=== PATIENT | male | born 1950 | race Asian ===

== ENCOUNTER 2024-07-01 14:54 | Inpatient (IN) | payer MEDICARE, MEDICAID, SELFPAY ==
[2024-07-01] VITALS (15 sets, daily range): BP systolic 132–180; BP diastolic 60–106; PULSE 65–81; RESP 17–100; TEMP 36.4–36.7; O2SAT 99–100; BMI 18.8; BMI 18.7
--- NOTE | 2024-07-01 15:31 | PD.EDRME ---
Rapid Medical Screening Exam RME Arrival date/time: 07/01/24 14:54 This is a 73-year-old male that was sent by his primary provider with complaints of low sodium. Patient thinks his sodium was 117 but she is not sure. Patient has no complaints although states that he has not been helping her clean outside and she thinks it is because he is not feeling well and he feels weak. Patient does not have any complaints. Patient has a history of diabetes, hyperlipidemia, and hypertension. I have greeted and performed a focused initial assessment of this patient. Initial appropriate labs ordered at this time. A comprehensive ED assessment and evaluation of the patient and analysis of all test and completion of medical decision making process will be conducted by additional ED provider. Chief Complaint: Recheck/Abnormal Lab/Rx Time Seen by Provider: 07/01/24 15:00 Vital signs: Vital Signs Temperature 97.6 F 07/01/24 15:23 Pulse Rate 77 07/01/24 15:23 Respiratory Rate 18 07/01/24 15:23 Blood Pressure 163/66 H 07/01/24 15:23 Pulse Oximetry (%) 99 07/01/24 15:23 Oxygen Delivery Method Room Air 07/01/24 15:23
--- NOTE | 2024-07-01 15:32 | EKG_ITS ---
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
--- NOTE | 2024-07-01 15:32 | XR_ITS ---
Examination: PA lateral chest 2 views TECHNIQUE: Upright PA and lateral chest 2 views Exam date and time: July 01, 2024 at 1546 hours Comparison May 19, 2024 INDICATIONS: Chest pain today. FINDINGS: Normal heart size. No pneumonia or pulmonary edema. Moderate osteopenia IMPRESSION: No active disease.
[2024-07-01 16:13] LABS: Collection Type, Urine Voided; Squamous Epithelial Cell,Urine 0 /hpf (0-5)
[2024-07-01 16:24] LABS: Basophils % (Auto) 0 % (0-2.5); Eosinophils # (Auto) 0.2 Thou/mm3 (0.0-0.5); Eosinophils % (Auto) 4 % (0-10); Hematocrit 31.4 % (41.0-53.0); Hemoglobin 11.7 g/dL (13.5-16.0); Immature Granulocytes % (Auto) 0 % (0-0); Immature Granulocytes Auto 0.02 Thou/mm3 (0.00-0.00); Lymphocytes # (Auto) 0.8 Thou/mm3 (1.0-4.8); Lymphocytes % (Auto) 16 % (10-50); Mean Corpuscular HGB Conc 37.3 g/dl (31.0-37.0); Mean Corpuscular Hemoglobin 29.8 pg (25.0-35.0); Mean Corpuscular Volume 80 fL (80-100); Monocytes # (Auto) 0.8 Thou/mm3 (0.0-0.8); Monocytes % (Auto) 16 % (0-12); Neutrophils # (Auto) 3.2 Thou/mm3 (1.8-7.7); Neutrophils % (Auto) 64 % (37-80); Nucleated Red Blood Cell % 0 /100 WBC (0); Platelet Count 299 Thou/mm3 (140-440); RDW Standard Deviation 35.6 fL (35.1-43.9); Red Blood Count 3.92 Miln/mm3 (4.50-5.90)
[2024-07-01 16:34] LABS: B-Type Natriuretic Peptide 59 pg/mL (0-100)
--- NOTE | 2024-07-01 16:35 | EDNOTE_ITS ---
<Statement entered by Hannah So MD - 07/02/24 04:25> As co-signing physician, I was present and available for consult prn. I concur with the plan and care as documented by the midlevel provider. ED Recheck Abnl Lab Rx-RME/HPI General Chief Complaint: Recheck/Abnormal Lab/Rx Stated Complaint: LOW SODIUM, SENT BY CLINIC Time Seen by Provider: 07/01/24 15:00 Arrival date/time: 07/01/24 14:54 RME / HPI RME / HPI narrative: 73-year-old male that was sent by his primary provider with complaints of low sodium. Patient thinks his sodium was 117 but she is not sure. Patient has no complaints although states that he has not been helping her clean outside and she thinks it is because he is not feeling well and he feels weak. Patient does not have any complaints except for dizziness when the patient woke up this morning. Patient has a history of diabetes, hyperlipidemia, and hypertension. Patient lab draw was done yesterday. No vomiting no diarrhea no other complaints noted. Related Data Home Medications ?Medication ?Instructions ?Recorded ?Confirmed atorvastatin 20 mg tablet 20 mg PO QDAY 01/29/2201/29 glipizide 5 mg-metformin 500 mg 5 - 500 tab PO BID 03/2201/29/22 tablet lisinopril 30 mg tablet 30 mg PO QDAY 01/29/2201/29 Allergies Allergy/AdvReac Type Severity Reaction Status Date / Time No Known Allergies Allergy Unknown Uncoded 05/20/04 16:51 Review of Systems Review of Systems Narrative Review of Systems: Review of system reviewed and within normal limits except mentioned in HPI ED Exam Narrative Physical exam: VITAL SIGNS: Reviewed. GENERAL APPEARANCE: Alert and interactive, follows commands, no acute distress, HEAD AND FACE: Non-traumatic. ENT: PERRL, pink conjunctivitis, eyelid no trauma, Mucous membrane moist. NECK: Supple, nontender, no nuchal rigidity. CHEST: No tenderness, no crepitus, no paradoxical movement, no retractions. LUNGS: Clear, well ventilated, symmetric, no rales, no wheezing, no ronchi, no stridor, good breath sounds bilaterally. HEART: Regular rate, regular rhythm, no murmur, no gallops. ABDOMEN: Soft, positive bowel sounds, nondistended, no guarding, nontender, no rebound, no masses, RECTAL: Deferred. GENITAL: Deferred. NEUROLOGICAL: Gross motor function intact sensory function intact, Appropriate for age. MUSCULOSKELETAL: low back nontender, full range of motion. EXTREMITIES: Nontender, full range of motion. SKIN: Color pink, dry, no rash, no lacerations, no abrasions, no contusions. LYMPHATICS: Deferred. Course Quality Measures none Orders Category Date Time Status COVID-19 Screening Questionnaire NOW Care 07/01/24 19:31 Active Decision to Admit X1 Care 07/01/24 19:31 Completed EKG (ED ONLY) *Do not use* NOW Care 07/01/24 15:32 Completed Insert IV NOW Care 07/01/24 19:01 Active EKG (ED Only) Stat Exams 07/01/24 15:32 Draft XR chest 2V Stat Exams 07/01/24 15:32 Completed BNP [B-Type Natriuretic Peptide] Stat Lab 07/01/24 15:59 Completed CBC Stat Lab 07/01/24 15:59 Completed Comprehensive Metabolic Panel Stat Lab 07/01/24 15:59 Completed Magnesium Stat Lab 07/01/24 15:59 Completed Phosphorous Stat Lab 07/01/24 15:59 Completed Troponin I Stat Lab 07/01/24 15:59 Completed Urinalysis, C/S if Indicated Stat Lab 07/01/24 16:07 Completed Sodium Chloride 0.9% 250 ml [Ns] 250 ml Med 07/01/24 18:36 Discontinued IV 999 mls/hr Vital Signs Vital signs: Vital Signs Temperature 97.6 F 07/01/24 15:23 Pulse Rate 77 07/01/24 15:23 Respiratory Rate 18 07/01/24 15:23 Blood Pressure 163/66 H 07/01/24 15:23 Pulse Oximetry (%) 99 07/01/24 15:23 Oxygen Delivery Method Room Air 07/01/24 15:23 Recheck / Abnormal Lab / Rx MDM Narrative MDM Narrative:: 73-year-old male that was sent by his primary provider with complaints of low sodium. Patient thinks his sodium was 117 but she is not sure. Patient has no complaints although states that he has not been helping her clean outside and she thinks it is because he is not feeling well and he feels weak. Patient does not have any complaints except for dizziness when the patient woke up this morning. Patient has a history of diabetes, hyperlipidemia, and hypertension. Patient lab draw was done yesterday. No vomiting no diarrhea no other complaints noted. Patient's sodium was noted to be 120 hemoglobin of 11.7 months [address] DrNelida 0.4 chloride was also noted to be 84 creatinine 1.6 BUN of 27. Osmolality was noted to be 252 Patient troponin was noted to be 0.0 52 Urinalysis no UTI EKG showed normal sinus rhythm, ventricular rate of 68 bpm, no ST segment elevation or depression noted. CT scan of the head came back unremarkable. Patient received IV NS x 1 L. Patient data External records reviewed:: None Clinical information provided by:: patient Social determinants that could affect healthcare access:: none Patient has the following chronic illnesses:: Hypertension How is presenting disease/condition affected by chronic disease/condition?: exacerbated by Evaluation data The following diagnostics were reviewed and interpreted by me:: lab results, radiology exam(s) and EKG tracing(s) Lab and/or radiology exams considered but not ordered:: None Interpretation Summary: See results MDM Medications / Prescriptions Medications or Prescriptions considered but not ordered:: None Medication administrations:: Medication Administration History Acetaminophen (Acetaminophen 325 Mg Tablet) 650 mg PO Q6H PRN PRN Reason: PAIN OR FEVER > 101 Stop: 07/31/24 20:37 Dextrose (Dextrose 50%-Water Inj 50 Ml Syringe) 25 ml IV Q15MIN PRN PRN Reason: BG 50-70 responsive npo pt Stop: 07/31/24 20:49 Dextrose (Dextrose 50%-Water Inj 50 Ml Syringe) 50 ml IV Q15MIN PRN PRN Reason: BG <50 OR BG <70 & pt unresponsive Stop: 07/31/24 20:49 Glucagon (Glucagon Inj 1 Mg Vial) 1 mg IM Q15MIN PRN PRN Reason: BG <70, and no IV access Sodium Chloride (Ns) 1,000 mls @ 75 mls/hr IV .[id number] DEREJE Stop: 07/31/24 20:50 Last Admin: 07/01/24 21:43 Dose: 75 mls/hr Documented By: Infusion: 07/01/24 21:43 Dose: Infused Documented By: Admin: 07/01/24 21:06 Dose: 75 mls/hr Documented By: EE Insulin Human Lispro (Insulin Lispro (Admelog) 1 Unit/0.01 Ml Unit) 0 unit SC AC DEREJE; Protocol Stop: 08/01/24 07:29 Lisinopril (Lisinopril 20 Mg Tablet) 40 mg PO QDAY DEREJE Stop: 08/01/24 08:59 Ondansetron HCl (Ondansetron Inj 2 Mg/Ml Inj 2 Ml) 4 mg IV Q6H PRN; Protocol PRN Reason: NAUSEA OR VOMITING Stop: 07/31/24 20:37 Sennosides (Senna Tablet) 2 tab PO BID PRN; Protocol PRN Reason: CONSTIPATION Stop: 07/31/24 20:37 Discontinued Medications Sodium Chloride (Ns) 250 mls @ 999 mls/hr IV .Q16M ONE Stop: 07/01/24 18:51 Last Infusion: 07/01/24 19:15 Dose: Infused Documented By: Admin: 07/01/24 19:03 Dose: 999 mls/hr Documented By: ANAHI IV fluids for hydration Consultations Consultation(s) initiated? (list below): No Diagnosis Recheck Differential Diagnosis: other (Dizziness, generalized weakness hyponatremia, dehydration) Most likely diagnosis given after review of the tests above:: Hyponatremia, dizziness, generalized weakness Admission Indicated Admission indicated?: indicated Admission Request Was there a request for admission?: Yes Admission Attestation Admission request attestation: Discussed case with [Dr. Ortiz] from Hospitalist service regarding admission. Discussed patients ED course, exam findings, labs, and radiology results. The Hospitalist [agrees] to accept the patient for admission. Disposition Plan Disposition Plan: Admit Discharge Plan Plan Patient Disposition: Admit Acute Care w/in Hospital Discharge Disposition comment: Stable Problem List Clinical Impression: Acute hyponatremia, Dizziness, Weakness generalized
[2024-07-01 16:47] LABS: Bilirubin,Urine Negative (Negative); Blood,Urine Negative (Negative); Clarity,Urine Clear (Clear/Hazy); Color,Urine Lt-Yellow (Lt Yel-Yel); Culture Indicated,Urine Not Indicated; Glucose, Urine Trace (Negative); Ketones,Urine Negative (Negative); Leukocyte Esterase,Urine Negative (Negative); Nitrite,Urine Negative (Negative); PH,Urine 6.5 (5.0-7.0); Protein,Urine Trace (Neg - Trace); RBC,Urine 1 /hpf (0-3); Specific Gravity,Urine 1.009 (1.001-1.035); Urobilinogen,Urine Negative mg/dL (0.0-1.0); WBC,Urine < 1 /hpf (0-5)
[2024-07-01 17:03] LABS: Alanine Aminotransferase 29 U/L (10-49); Albumin, Serum 4.9 gm/dL (3.4-4.8); Albumin/Globulin Ratio 1.9 (1.2-2.2); Alkaline Phosphatase 86 U/L (46-116); Anion Gap 12 (7-16); Aspartate Amino Transferase 18 U/L (0-34); BUN/Creatinine Ratio 17 Ratio (12-20); Bilirubin,Total 0.6 mg/dL (0.3-1.2); Blood Urea Nitrogen 27 mg/dL (9-23); Calcium 9.1 mg/dL (8.3-10.6); Calcium (Corrected) 9.1 mg/dL (8.5-10.1); Carbon Dioxide 24.3 mMol/L (20.0-31.0); Chloride 84 mMol/L (98-107); Creatinine (Component) 1.6 mg/dL (0.6-1.3); Estimated Creatinine Clearance 29.9 mL/min (>60); Globulin 2.6 gm/dL (2.3-3.5); Glucose 194 mg/dL (74-106); Magnesium 1.7 mg/dL (1.6-2.6); Osmolality,Calculated 252 (275-295); Phosphorous 3.5 mg/dL (2.4-5.1); Potassium 3.9 mMol/L (3.4-5.1); Sodium 120 mMol/L (136-145); Total Protein 7.5 gm/dL (5.7-8.2); eGFR 46 See Note
[2024-07-01 17:05] LABS: Troponin I 0.048 ng/mL (0.0-0.045)
[2024-07-01] MEDS: SODIUM CHLORIDE 0.9% 250 ML 250 ML 999 ML IV (19:03)
--- NOTE | 2024-07-01 20:38 | XR_ITS ---
Examination: CT brain head without contrast. 2-D sagittal coronal reconstructions Date and time of exam:July 01, 2024 2125 hours INDICATIONS: Generalized weakness beginning 2 days ago CTDI: vol (mGy):50 DLP: (mGycm): 993 Technique: Multiple CT axial sections of the brain have been obtained, 5 mm slice thickness. Contrast has not been administered. 2-D sagittal, coronal reconstructions have been obtained Low dose protocols were performed. One or more of the following dose reduction techniques were used; automated exposure control, adjustment of the mA and/or KV according to patient size, use of iterative reconstruction technique. Findings: No significant ventricular enlargement. Mild chronic frontal subdural hygromas Intra-axial or extra-axial hemorrhage density is not seen. No mass effect or midline shift Basal cisterns are not remarkable. Fourth ventricle is midline. Cranial vault intact. Moderate bilateral chronic mastoiditis Impression: Negative for acute hemorrhage, mass effect or midline shift
--- NOTE | 2024-07-01 20:52 | ESHP_ITS ---
Documentation for date of: 07/01/24 HPI History of Present Illness History of present illness: Patient is 81-year-old male, past medical history of diabetes mellitus, hypertension, ischemic CVA, who was referred to the ER by his primary care physician after routine labs showed low sodium. Per patient he is currently asymptomatic, except for some tingling sensation in his left lower extremity and left shoulder. Mental status is at the baseline. The patient he was seen at [facility] by his PCP, routine labs showed sodium 117, patient was directed to go to the emergency room for admission. Patient reported that he has been trying to lose weight and is on a diet, diet mostly consists of toast, also admitted to drinking excessive amounts of water. Also reported infrequent loose bowel movements, twice last week. 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 Past medical history: Diabetes mellitus on oral hypoglycemics, hypertension on lisinopril, hyperlipidemia on atorvastatin, remote history of ischemic CVA in 2002, was on aspirin but is not currently taking aspirin. CKD, he was referred to [employer] worker apprentice by his PCP, but has not been compliant with follow-up. Past surgical history: History of cholecystectomy, history of appendectomy, cataract surgery Social history: Denies smoking or drinking, denies drug use Review of Systems Review of Systems Narrative Review of Systems: General: Denies fevers or chills HEENT: Denies congestion or sore throat Heart: Denies chest pain or palpitations Lungs: Denies shortness of breath or cough Abdomen: Endorses diarrhea, denies melena or bleeding from GI tract. Genitourinary: Denies frequency, urgency, dysuria, or hematuria Musculoskeletal: Denies joint pain, denies muscular pain Neurology: Denies any numbness, tingling Review of systems otherwise negative except what is mentioned above. Exam Vital Signs Temp Pulse Resp BP Pulse Ox O2 Del Method 97.6 F 68 17 147/64 H 100 Room Air 07/01/24 18:53 07/01/24 18:53 07/01/24 18:53 07/01/24 18:53 07/01/24 18:53 07/01/24 18:53 Narrative Exam General: AOx3, cooperative, noted temporal wasting Skin: Intact, no cyanosis or edema noted. HEENT: Atraumatic/normocephalic, ADIS, neck supple Heart: RRR, S1 and S2 without clicks or murmurs Lungs: Clear on auscultation bilaterally, no difficulty breathing Abdomen: Soft, nontender. Bowel sounds present . Vascular: Peripheral pulses palpable Neuro: No focal neurological deficits noted. Results: Labs 07/01/24 15:59 07/01/24 20:55 Labs: Short CBC 07/01/24 Range/Units 15:59 WBC 5.0 (3.8-10.6) Thou/mm3 Hgb 11.7 L (13.5-16.0) g/dL Hct 31.4 L (41.0-53.0) % Plt Count 299 (140-440) Thou/mm3 BMP 07/01/24 15:59 Sodium 120 L Potassium 3.9 Chloride 84 L Carbon Dioxide 24.3 BUN 27 H Creatinine 1.6 H Glucose 194 H Calcium 9.1 Cardiac Enzymes 07/01/24 Range/Units 15:59 Troponin I 0.048 H* (0.0-0.045) ng/mL Liver Function 07/01/24 Range/Units 15:59 Total Bilirubin 0.6 (0.3-1.2) mg/dL AST 18 (0-34) U/L ALT 29 (10-49) U/L Alkaline Phosphatase 86 (46-116) U/L Albumin 4.9 H (3.4-4.8) gm/dL Urine 07/01/24 Range/Units 16:07 Urine Color Lt-Yellow (Lt Yel-Yel) Urine Clarity Clear (Clear/Hazy) Urine pH 6.5 (5.0-7.0) Ur Specific [place] 1.009 (1.001-1.035) Urine Protein Trace (Neg - Trace) Urine Glucose (UA) Trace (Negative) Quality Measures Quality Measures VTE prophylaxis Advance care planning discussed with:: patient Medications Home Medications and Allergies Home Medications ?Medication ?Instructions ?Recorded ?Confirmed ?Type atorvastatin 20 mg tablet 20 mg PO QDAY 01/29/2201/29 History glipizide 5 mg-metformin 500 mg 5 - 500 tab PO BID 03/2201/29/22 History tablet lisinopril 30 mg tablet 30 mg PO QDAY 01/29/2201/29 History Allergies Allergy/AdvReac Type Severity Reaction Status Date / Time No Known Allergies Allergy Unknown Uncoded 05/20/04 16:51 Visit Medications Acetaminophen (Acetaminophen 325 Mg Tablet) 650 mg PO Q6H PRN PRN Reason: PAIN OR FEVER > 101 Stop: 07/31/24 20:37 Dextrose (Dextrose 50%-Water Inj 50 Ml Syringe) 25 ml IV Q15MIN PRN PRN Reason: BG 50-70 responsive npo pt Stop: 07/31/24 20:49 Dextrose (Dextrose 50%-Water Inj 50 Ml Syringe) 50 ml IV Q15MIN PRN PRN Reason: BG <50 OR BG <70 & pt unresponsive Stop: 07/31/24 20:49 Glucagon (Glucagon Inj 1 Mg Vial) 1 mg IM Q15MIN PRN PRN Reason: BG <70, and no IV access Sodium Chloride (Ns) 1,000 mls @ 75 mls/hr IV .[id number] DEREJE Stop: 07/31/24 20:50 Insulin Human Lispro (Insulin Lispro (Admelog) 1 Unit/0.01 Ml Unit) 0 unit SC AC DEREJE; Protocol Stop: 08/01/24 07:29 Lisinopril (Lisinopril 20 Mg Tablet) 40 mg PO QDAY DEREJE Stop: 08/01/24 08:59 Ondansetron HCl (Ondansetron Inj 2 Mg/Ml Inj 2 Ml) 4 mg IV Q6H PRN; Protocol PRN Reason: NAUSEA OR VOMITING Stop: 07/31/24 20:37 Sennosides (Senna Tablet) 2 tab PO BID PRN; Protocol PRN Reason: CONSTIPATION Stop: 07/31/24 20:37 Discontinued Medications Sodium Chloride (Ns) 250 mls @ 999 mls/hr IV .Q16M ONE Stop: 07/01/24 18:51 Last Admin: 07/01/24 19:03 Dose: 999 mls/hr Assessment & Plan Plan Patient is a 73-year-old male, past medical history of hypertension, diabetes, hyperlipidemia, who was referred to the ER by his PCP after routine labs showed hyponatremia. #Hypoosmolar hyponatremia Per patient, on outpatient labs sodium was 117, repeat sodium 120, chest x-ray negative for pulmonary mass, ordered CT head without contrast due to AINYA. ? Every 4 hours sodium checks ? IV 0.9% NS at 75 cc/h ? Urine electrolytes #ANIYA on CKD Unknown baseline kidney function, but patient does have history of CKD, lost to follow-up with [employer]ra[employer] worker apprent[employer]. ? Gentle IV maintenance fluids ? Avoid nephrotoxic drugs ? Consider nephrology consult #Type II AL Likely supply/demand ischemia, patient is asymptomatic does not complain of any chest pain or pressure. No complaint of shortness of breath. Initial troponin elevated on ER labs, will order repeat troponin, EKG negative for any acute ischemia. #History of hypertension - continue lisinopril #History of diabetes mellitus ? sliding scale insulin ? Follow A1c Disposition: TELE DVT prophylaxis: Heparin subcut GI prophylaxis: none Diet: Renal , fluid restriction Lines: PIV CODE STATUS: Full Plan of care discussed with attending Dr. Ryan Caicedo pgy 2 Attending Provider Attestation/Addendum I have examined the patient, reviewed labs and imaging findings, discussed the case with the resident(s), and reviewed entered orders. I agree with the plan of care as outlined in this note, with these additional summaries/recommendations: 73-year-old male presented to the ED sent over by primary care physician for low sodium. In the ER, patient found to have sodium level of 117 but otherwise appears relatively asymptomatic. Repeat testing showed 120. Discussion held with patient and recommended to stay for further workup and correction of serum sodium level. Will monitor closely for signs neurological dysfunction and aim for slow correction of serum sodium. Sundeep Davis MD
[2024-07-01] MEDS: SODIUM CHLORIDE 0.9% 1000 ML 1,000 ML 75 ML IV ×2 (21:06→21:43)
[2024-07-01 22:08] LABS: Sodium 122 mMol/L (136-145)
[2024-07-01 22:09] LABS: Troponin I 0.052 ng/mL (0.0-0.045)
[2024-07-02] VITALS (20 sets, daily range): BP systolic 100–189; BP diastolic 54–79; PULSE 58–87; RESP 12–100; TEMP 36.8–36.9; O2SAT 98–100
[2024-07-02] MEDS: SODIUM CHLORIDE 0.9% 1000 ML 1,000 ML 50 ML IV (00:45)
[2024-07-02 06:31] LABS: Basophils % (Auto) 0 % (0-2.5); Eosinophils # (Auto) 0.3 Thou/mm3 (0.0-0.5); Eosinophils % (Auto) 6 % (0-10); Hematocrit 28.4 % (41.0-53.0); Hemoglobin 10.4 g/dL (13.5-16.0); Immature Granulocytes % (Auto) 0 % (0-0); Immature Granulocytes Auto 0.01 Thou/mm3 (0.00-0.00); Lymphocytes # (Auto) 1.1 Thou/mm3 (1.0-4.8); Lymphocytes % (Auto) 21 % (10-50); Mean Corpuscular HGB Conc 36.6 g/dl (31.0-37.0); Mean Corpuscular Volume 82 fL (80-100); Monocytes # (Auto) 0.7 Thou/mm3 (0.0-0.8); Monocytes % (Auto) 14 % (0-12); Neutrophils # (Auto) 3.1 Thou/mm3 (1.8-7.7); Neutrophils % (Auto) 60 % (37-80); Nucleated Red Blood Cell % 0 /100 WBC (0); Platelet Count 278 Thou/mm3 (140-440); RDW Standard Deviation 36.6 fL (35.1-43.9); Red Blood Count 3.47 Miln/mm3 (4.50-5.90); White Blood Count 5.2 Thou/mm3 (3.8-10.6)
[2024-07-02 06:54] LABS: Alanine Aminotransferase 24 U/L (10-49); Albumin/Globulin Ratio 1.9 (1.2-2.2); Alkaline Phosphatase 69 U/L (46-116); Anion Gap 8 (7-16); Aspartate Amino Transferase 15 U/L (0-34); BUN/Creatinine Ratio 19 Ratio (12-20); Bilirubin,Total 0.6 mg/dL (0.3-1.2); Blood Urea Nitrogen 23 mg/dL (9-23); Calcium 8.7 mg/dL (8.3-10.6); Calcium (Corrected) 8.7 mg/dL (8.5-10.1); Carbon Dioxide 23.7 mMol/L (20.0-31.0); Cardiac Risk Estimate 1.7 RATIO (4.0-6.7); Chloride 95 mMol/L (98-107); Cholesterol 76 mg/dL (132-200); Creatinine (Component) 1.2 mg/dL (0.6-1.3); Estimated Creatinine Clearance 39.6 mL/min (>60); Globulin 2.1 gm/dL (2.3-3.5); Glucose 117 mg/dL (74-106); HDL Cholesterol 46 mg/dL (40-60); LDL Cholesterol,Calculated 17 mg/dL (0-130); Magnesium 1.6 mg/dL (1.6-2.6); Osmolality,Calculated 259 (275-295); Phosphorous 3.1 mg/dL (2.4-5.1); Potassium 3.6 mMol/L (3.4-5.1); Sodium 127 mMol/L (136-145); Thyroid Stimulating Hormone 1.13 uIU/mL (0.55-4.78); Total Protein 6.1 gm/dL (5.7-8.2); Triglycerides 63 mg/dL (30-150); eGFR > 60 See Note
[2024-07-02 07:34] LABS: Glucose Estimated Average 186 mg/dL (80-131); Hemoglobin A1C 8.1 % Hgb (4.8-6.0)
[2024-07-02 07:45] LABS: Troponin I 0.048 ng/mL (0.0-0.045)
[2024-07-02] MEDS: Lisinopril 20 MG TABLET 40 MG PO (08:36)
[2024-07-02] MEDS: DEXTROSE 5%-WATER 1,000 ML 75 ML IV (08:36)
[2024-07-02 10:36] LABS: Sodium 127 mMol/L (136-145)
[2024-07-02 11:19] LABS: Chloride,Urine Random 64.9 mMol/L (55.0-125.0); Creatinine,Random Urine 31 mg/dL (30-125); Potassium,Urine Random 17 mMol/L (12-62); Sodium,Urine Random 60.8 mMol/L (20.0-110.0)
--- NOTE | 2024-07-02 11:22 | PD.RESPRO ---
Documentation for date of: 07/02/24 Subjective Subjective Interval history: 07/02/2024: Overnight admission for 73-year-old male with past medical history of type 2 diabetes, hypertension, ischemic CVA in 2002 who presented after he was found to have symptomatic hyponatremia (paresthesias/weakness?), sodium of 117. Patient seen and examined in hospital bed with no concerning cardiac or neurologic symptoms and generally feels fine. Laboratory findings show slight overcorrection sodium, as such IV fluid resuscitation with NS has been stopped and switched to D5W with Q2H sodium checks. Consulted nephrology for recommendations regarding patient's hyponatremia but upon additional history taking was found that the patient had completely cut out salt from diet for about 2 months. Will continue to monitor for any acute changes. Exam Vital Signs Temp Pulse Resp BP Pulse Ox O2 Del Method 98.2 F 71 16 129/76 100 Room Air 07/02/24 07:15 07/02/24 11:04 07/02/24 11:04 07/02/24 08:36 07/02/24 08:01 07/02/24 08:01 Narrative Exam Physical Exam: GENERAL: Awake, answering questions appropriately, appears stated age, frail appearing/low body weight HEENT: NC/AT. Moist mucosa. PERRLA/EOMI. CARDIO: Heart RRR, no obvious murmurs, no JVD. PULM: No coughing or visible SOB. Lungs CTA B/L. GI: Abdomen soft, NT/ND, +BS. SKIN/MSK/EXT: No wounds/discoloration/rashes/edema/amputations. +Pedal pulses present B/L. NEURO: Oriented x3, Moves extremities x4, no focal neurologic deficits noted. Objective Labs 07/06/24 05:21 07/06/24 05:21 Labs: Laboratory Results - last 24 hr 07/01/24 07/01/24 07/01/24 15:59 16:07 20:55 WBC 5.0 RBC 3.92 L Hgb 11.7 L Hct 31.4 L MCV 80 MCH 29.8 MCHC 37.3 H RDW Std Deviation 35.6 Plt Count 299 Neut % (Auto) 64 Lymph % (Auto) 16 [place] % (Auto) 16 H Eos % (Auto) 4 Baso % (Auto) 0 Neut # (Auto) 3.2 Lymph # (Auto) 0.8 L [place] # (Auto) 0.8 Eos # (Auto) 0.2 Baso # (Auto) 0.0 Immature Gran # (Auto) 0.02 H Absolute Nucleated RBC 0.00 Immature Gran % 0 Nucleated RBC % 0 PT INR Sodium 120 L 122 L Potassium 3.9 Chloride 84 L Carbon Dioxide 24.3 Anion Gap 12 BUN 27 H Creatinine 1.6 H Estim Creat Clear Calc 29.9 L eGFR 46 L BUN/Creatinine Ratio [address] Glu mg/dL Hemoglobin A1c Calculated Osmolality 252 L Calcium 9.1 Corrected Calcium 9.1 Phosphorus 3.5 Magnesium 1.7 Total Bilirubin 0.6 AST 18 ALT 29 Alkaline Phosphatase 86 Troponin I 0.048 H* 0.052 H* B-Natriuretic Peptide 59 Total Protein 7.5 Albumin 4.9 H Globulin 2.6 Albumin/Globulin Ratio 1.9 Triglycerides Cholesterol LDL Cholesterol, Calc HDL Cholesterol Cholesterol/HDL Ratio TSH Ur Collection Type Voided Urine Color Lt-Yellow Urine Clarity Clear Urine pH 6.5 Ur Specific [place] 1.009 Urine Protein Trace Urine Glucose (UA) Trace Urine Ketones Negative Urine Blood Negative Urine Nitrite Negative Urine Bilirubin Negative Urine Urobilinogen (Auto) Negative Ur Leukocyte Esterase Negative Urine RBC 1 Urine WBC < 1 Ur Squamous Epith Cells 0 Urine Bacteria None Ur Culture Indicated? Not Indicated Ur Random Creatinine Ur Random Sodium Ur Random Potassium Ur Random Chloride 07/02/24 07/02/24 07/02/24 05:14 09:12 10:15 WBC 5.2 RBC 3.47 L Hgb 10.4 L Hct 28.4 L MCV 82 MCH 30.0 MCHC 36.6 RDW Std Deviation 36.6 Plt Count 278 Neut % (Auto) 60 Lymph % (Auto) 21 [place] % (Auto) 14 H Eos % (Auto) 6 Baso % (Auto) 0 Neut # (Auto) 3.1 Lymph # (Auto) 1.1 [place] # (Auto) 0.7 Eos # (Auto) 0.3 Baso # (Auto) 0.0 Immature Gran # (Auto) 0.01 H Absolute Nucleated RBC 0.00 Immature Gran % 0 Nucleated RBC % 0 PT 11.0 INR 1.0 Sodium 127 L 127 L Potassium 3.6 Chloride 95 L Carbon Dioxide 23.7 Anion Gap 8 BUN 23 Creatinine 1.2 Estim Creat Clear Calc 39.6 L eGFR > 60 BUN/Creatinine Ratio 19 Glucose [address] Glu mg/dL 186 H Hemoglobin A1c 8.1 H Calculated Osmolality 259 L Calcium 8.7 Corrected Calcium 8.7 Phosphorus 3.1 Magnesium 1.6 Total Bilirubin 0.6 AST 15 ALT 24 Alkaline Phosphatase 69 Troponin I 0.048 H* B-Natriuretic Peptide Total Protein 6.1 Albumin 4.0 D Globulin 2.1 L Albumin/Globulin Ratio 1.9 Triglycerides 63 Cholesterol 76 L LDL Cholesterol, Calc 17 HDL Cholesterol 46 Cholesterol/HDL Ratio 1.7 L TSH 1.13 Ur Collection Type Urine Color Urine Clarity Urine pH Ur Specific [place] Urine Protein Urine Glucose (UA) Urine Ketones Urine Blood Urine Nitrite Urine Bilirubin Urine Urobilinogen (Auto) Ur Leukocyte Esterase Urine RBC Urine WBC Ur Squamous Epith Cells Urine Bacteria Ur Culture Indicated? Ur Random Creatinine 31 Ur Random Sodium 60.8 Ur Random Potassium 17 Ur Random Chloride 64.9 Quality Measures Quality Measures VTE prophylaxis Advance care planning discussed with:: patient Assessment & Plan Assessment Current Active Medications: Generic Name Dose Route Start Last Admin Trade Name Freq PRN Reason Stop Dose Admin Acetaminophen 650 mg 07/01/24 20:38 Acetaminophen 325 Mg Tablet PO 07/31/24 20:37 Q6H PRN PAIN OR FEVER > 101 Dextrose 25 ml 07/01/24 20:50 Dextrose 50%-Water Inj 50 Ml Syringe IV 07/31/24 20:49 Q15MIN PRN BG 50-70 responsive npo pt Dextrose 50 ml 07/01/24 20:50 Dextrose 50%-Water Inj 50 Ml Syringe IV 07/31/24 20:49 Q15MIN PRN BG <50 OR BG <70 & pt unresponsive Diclofenac Sodium 1 gm 07/02/24 12:00 Diclofenac 1% Top Gel 100 Gm Tube TOP 08/01/24 11:59 QID DEREJE Glucagon 1 mg 07/01/24 20:50 Glucagon Inj 1 Mg Vial IM Q15MIN PRN BG <70, and no IV access Dextrose 1,000 mls @ 75 mls/hr 07/02/24 08:45 07/02/24 08:36 D5w IV 08/01/24 08:44 75 mls/hr .[id number] DEREJE Administration Insulin Human Lispro 0 unit 07/02/24 07:30 07/02/24 07:17 Insulin Lispro (Admelog) 1 Unit/0.01 Ml Unit SC 08/01/24 07:29 Not Given AC ON LICENSE OF [facility] Protocol Lisinopril 40 mg 07/02/24 09:00 07/02/24 08:36 Lisinopril 20 Mg Tablet PO 08/01/24 08:59 40 mg QDAY DEREJE Administration Ondansetron HCl 4 mg 07/01/24 20:38 Ondansetron Inj 2 Mg/Ml Inj 2 Ml IV 07/31/24 20:37 Q6H PRN NAUSEA OR VOMITING Protocol Sennosides 2 tab 07/01/24 20:38 Senna Tablet PO 07/31/24 20:37 BID PRN CONSTIPATION Protocol Plan 73-year-old male, past medical history of hypertension, [id number] type 2 diabetes, hyperlipidemia, who was referred to the ER by his PCP after routine labs showed hyponatremia; admitted for IV fluid resuscitation and close monitoring. #Hypoosmolar Hyponatremia Per history, patient follows up sporadically with a provider for his kidney but is unsure at this time about his diagnosis Hyponatremia likely secondary to complete abstinence from sodium for the past 2 months Patient able to urinate and denies having any kidney disease in the past Per patient, on outpatient labs sodium was 117; however, was told to present to the ED by his PCP Chest x-ray negative for pulmonary mass CT head negative for any acute process Patient's hyponatremia slightly overcorrected within the past 24 hours with an increase of 10 mmol Stopped IV fluid resuscitation with NS and switch to IV D5W at 75 cc/h Plan: Stopped IVF Q2 sodium checks Nephrology consulted, appreciate recommendations Urine electrolytes ordered #ANIYA on CKD stage II, improving Unknown baseline kidney function, but patient does have history of CKD, 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 No complaint of shortness of breath. Initial troponin elevated on ER labs; peaked and downtrended at 0.052 EKG negative for any acute ischemia Plan: Monitor for any acute changes in symptoms Stop trending troponin #Hypertension On home lisinopril 30 mg p.o. daily Plan: Continue home medication #[id number] type 2 diabetes A1c of 8.1 Patient on home metformin 1000 mg p.o. twice daily Plan: [facility] Diabetic education Hospital Management: Disposition: TELE DVT prophylaxis: Heparin subcut GI prophylaxis: none Diet: Renal , carb consistent Lines: PIV CODE STATUS: Full Patient seen and examined with attending Dr. Wolf Asencio, PGY-1 Attending Provider Attestation/Addendum 73-year-old male with multiple comorbidities including hypertension, type 2 diabetes mellitus, hyperlipidemia with subsequent CVA who presented with weakness found to have hyperosmolar hyponatremia, elevated troponins. As of now, plan to continue gentle IV fluid resuscitation with goal of sodium 121-123. Continue monitoring troponin. As per mentation, patient appears to be back to baseline.I reviewed above note and agree with findings and plans. I have also personally examined the patient with medicine team and went over assessment and plan with medical team including phd intern and resident physician.
--- NOTE | 2024-07-02 12:13 | PD.NEPHCONS ---
Documented by User: Doug Arango MD 07/03/24 17:22 History of Present Illness Data of Consult Requesting Physician: Sundeep Davis MD Primary Care Provider: Physician No Primary/Family Consult Narrative cc:: cc: Sundeep Davis MD Meds Home Medications and Allergies Home Medications ?Medication ?Instructions ?Recorded ?Confirmed ?Type atorvastatin 20 mg tablet 20 mg PO QDAY 01/29/22 07/02/24 History lisinopril 30 mg tablet 30 mg PO QDAY 01/29/22 07/02/24 History metformin 1,000 mg tablet 1,000 mg PO BID 07/02/24 07/02/24 History Allergies Allergy/AdvReac Type Severity Reaction Status Date / Time No Known Allergies Allergy Unverified 07/03/24 09:22 Exam Vital Signs Temp Pulse Resp BP Pulse Ox O2 Del Method 36.8 C 71 16 129/76 100 Room Air 07/02/24 07:15 07/02/24 11:04 07/02/24 11:04 07/02/24 08:36 07/02/24 08:01 07/02/24 08:01 Results Labs 07/03/24 06:32 07/03/24 14:50 Labs: Short CBC 07/01/24 07/02/24 Range/Units 15:59 05:14 WBC 5.0 5.2 (3.8-10.6) Thou/mm3 Hgb 11.7 L 10.4 L (13.5-16.0) g/dL Hct 31.4 L 28.4 L (41.0-53.0) % Plt Count 299 278 (140-440) Thou/mm3 BMP 07/01/24 07/01/24 07/02/24 15:59 20:55 05:14 Sodium 120 L 122 L 127 L Potassium 3.9 3.6 Chloride 84 L 95 L Carbon Dioxide 24.3 23.7 BUN 27 H 23 Creatinine 1.6 H 1.2 Glucose 194 H 117 H D Calcium 9.1 8.7 07/02/24 09:12 Sodium 127 L Potassium Chloride Carbon Dioxide BUN Creatinine Glucose Calcium Cardiac Enzymes 07/01/24 07/01/24 07/02/24 Range/Units 15:59 20:55 05:14 Troponin I 0.048 H* 0.052 H* 0.048 H* (0.0-0.045) ng/mL Liver Function 07/01/24 07/02/24 Range/Units 15:59 05:14 Total Bilirubin 0.6 0.6 (0.3-1.2) mg/dL AST 18 15 (0-34) U/L ALT 29 24 (10-49) U/L Alkaline Phosphatase 86 69 (46-116) U/L Albumin 4.9 H 4.0 D (3.4-4.8) gm/dL Urine 07/01/24 Range/Units 16:07 Urine Color Lt-Yellow (Lt Yel-Yel) Urine Clarity Clear (Clear/Hazy) Urine pH 6.5 (5.0-7.0) Ur Specific [place] 1.009 (1.001-1.035) Urine Protein Trace (Neg - Trace) Urine Glucose (UA) Trace (Negative) Assessment & Plan Assessment and plan (1) Acute hyponatremia: Status: Acute Additional Assessment & Plan Additional Plan: Thank you for allowing us to participate in the care of this patient. Plan discussed with attending Dr. Arango. Evgeny Saavedra MD PGY?1 Patient seen and examined with resident physician Dr. Langley. Note reviewed, agree with findings and recommendations. Patient was consulted with hyponatremia. Spoke to primary team. continue with IVF- D5W 120--127 Documented by User: Evgeny Saavedra MD 07/03/24 14:33 History of Present Illness Data of Consult Consult date: 07/02/24 Consult Narrative Reason for consult: Hyponatremia History of present illness: 81- y/o M with PMHx significant for diabetes mellitus, hypertension, ischemic CVA, who was referred to the ER by his primary care physician after routine labs showed low sodium. Per patient he is currently asymptomatic, except for some tingling sensation in his left lower extremity and left shoulder. Mental status is at the baseline. The patient he was seen at [facility] by his PCP, routine labs showed sodium 117, patient was directed to go to the emergency room for admission. Patient reported that he has been trying to lose weight and is on a diet, diet mostly consists of toast, also admitted to drinking excessive amounts of water. Also reported infrequent loose bowel movements, twice last week. 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 Nephrology consulted for management of hyponatremia. Patient initially showed overcorrection of sodium, was placed on D5W with every 2 hours sodium checks. Sodium level decreased appropriately, D5W was stopped and patient placed on fluid restriction. Patient denies weakness, dizziness, paresthesias, nausea, vomiting. Hemoglobin 10.4. Sodium 127, potassium 3.6, BUN 23, creatinine 1.2, EGFR 60. Will continue with fluid restriction and frequent sodium checks. Review of Systems Review of Systems Systems Reviewed: All systems reviewed, normal except as documented Past Medical History Past Medical History Comments PMH COMMENT: Past medical history: Diabetes mellitus on oral hypoglycemics, hypertension on lisinopril, hyperlipidemia on atorvastatin, remote history of ischemic CVA in 2002, was on aspirin but is not currently taking aspirin. CKD, he was referred to bag shaker by his PCP, but has not been compliant with follow-up. Past surgical history: History of cholecystectomy, history of appendectomy, cataract surgery Social history: Denies smoking or drinking, denies drug use Meds Home Medications and Allergies Home Medications ?Medication ?Instructions ?Recorded ?Confirmed ?Type atorvastatin 20 mg tablet 20 mg PO QDAY 01/29/22 07/02/24 History lisinopril 30 mg tablet 30 mg PO QDAY 01/29/22 07/02/24 History metformin 1,000 mg tablet 1,000 mg PO BID 07/02/24 07/02/24 History Allergies Allergy/AdvReac Type Severity Reaction Status Date / Time No Known Allergies Allergy Unverified 07/03/24 09:22 Exam Narrative Exam General: AOx3, cooperative, noted temporal wasting Skin: Intact, no cyanosis or edema noted. HEENT: Atraumatic/normocephalic, ADIS, neck supple Heart: RRR, S1 and S2 without clicks or murmurs Lungs: Clear on auscultation bilaterally, no difficulty breathing Abdomen: Soft, nontender. Bowel sounds present . Vascular: Peripheral pulses palpable Neuro: No focal neurological deficits noted. Results Labs 07/03/24 06:32 07/03/24 14:50 Assessment & Plan Assessment and plan (1) Acute hyponatremia: Status: Acute Assessment and plan: Patient presents with acute hyponatremia after diet involved mostly cutting out salt with several months, excessive water intake. Patient currently asymptomatic. Patient initially treated with NS, showed overcorrection, patient given D5W and every 2 hours sodium checks. Once sodium came down to appropriate level, D5W stopped patient placed on fluid restriction. Will continue to monitor closely. - Fluid strict 1500 cc daily - Frequent sodium checks - Urine electrolytes Additional Assessment & Plan Additional Plan: Thank you for allowing us to participate in the care of this patient. Plan discussed with attending Dr. Arango. Evgeny Saavedra MD PGY?1
[2024-07-02] MEDS: INSULIN LISPRO (AdmeLOG) 1 UNIT/0.01 ML UNIT SC ×2 (12:52→17:39)
[2024-07-02] MEDS: DICLOFENAC 1% TOP GEL 100 GM TUBE TOP ×2 (13:33→20:17)
[2024-07-02 14:37] LABS: Sodium 124 mMol/L (136-145)
[2024-07-02 16:11] LABS: Sodium 125 mMol/L (136-145)
[2024-07-02 18:02] LABS: Sodium 123 mMol/L (136-145)
[2024-07-02 20:07] LABS: Sodium 120 mMol/L (136-145)
[2024-07-02] MEDS: HEPARIN SOD INJ 5000 UNIT/ML VIAL SC (20:17)
[2024-07-02 23:05] LABS: Sodium 124 mMol/L (136-145)
[2024-07-03] VITALS (10 sets, daily range): BP systolic 130–153; BP diastolic 63–71; PULSE 57–90; RESP 16–99; TEMP 36.1–36.8; O2SAT 98–99; BMI 18.4; BMI 18.3
[2024-07-03 03:04] LABS: Sodium 126 mMol/L (136-145)
[2024-07-03] MEDS: DICLOFENAC 1% TOP GEL 100 GM TUBE TOP ×4 (05:19→21:22)
[2024-07-03 07:00] LABS: Basophils % (Auto) 0 % (0-2.5); Eosinophils # (Auto) 0.4 Thou/mm3 (0.0-0.5); Eosinophils % (Auto) 7 % (0-10); Hematocrit 27.8 % (41.0-53.0); Hemoglobin 10.7 g/dL (13.5-16.0); Immature Granulocytes % (Auto) 0 % (0-0); Immature Granulocytes Auto 0.01 Thou/mm3 (0.00-0.00); Lymphocytes # (Auto) 0.9 Thou/mm3 (1.0-4.8); Lymphocytes % (Auto) 15 % (10-50); Mean Corpuscular HGB Conc 38.5 g/dl (31.0-37.0); Mean Corpuscular Hemoglobin 30.5 pg (25.0-35.0); Mean Corpuscular Volume 79 fL (80-100); Monocytes # (Auto) 0.7 Thou/mm3 (0.0-0.8); Monocytes % (Auto) 12 % (0-12); Neutrophils # (Auto) 4.1 Thou/mm3 (1.8-7.7); Neutrophils % (Auto) 67 % (37-80); Nucleated Red Blood Cell % 0 /100 WBC (0); Platelet Count 276 Thou/mm3 (140-440); RDW Standard Deviation 35.8 fL (35.1-43.9); Red Blood Count 3.51 Miln/mm3 (4.50-5.90); White Blood Count 6.2 Thou/mm3 (3.8-10.6)
[2024-07-03 07:17] LABS: Alanine Aminotransferase 27 U/L (10-49); Albumin/Globulin Ratio 1.9 (1.2-2.2); Alkaline Phosphatase 69 U/L (46-116); Anion Gap 11 (7-16); Aspartate Amino Transferase 17 U/L (0-34); BUN/Creatinine Ratio 19 Ratio (12-20); Bilirubin,Total 0.6 mg/dL (0.3-1.2); Blood Urea Nitrogen 25 mg/dL (9-23); Calcium 8.7 mg/dL (8.3-10.6); Calcium (Corrected) 8.7 mg/dL (8.5-10.1); Carbon Dioxide 24.1 mMol/L (20.0-31.0); Chloride 92 mMol/L (98-107); Creatinine (Component) 1.3 mg/dL (0.6-1.3); Estimated Creatinine Clearance 35.9 mL/min (>60); Globulin 2.1 gm/dL (2.3-3.5); Glucose 144 mg/dL (74-106); Magnesium 1.7 mg/dL (1.6-2.6); Osmolality,Calculated 262 (275-295); Phosphorous 3.8 mg/dL (2.4-5.1); Potassium 3.5 mMol/L (3.4-5.1); Sodium 127 mMol/L (136-145); Total Protein 6.1 gm/dL (5.7-8.2); eGFR 59 See Note
[2024-07-03] MEDS: Lisinopril 20 MG TABLET 40 MG PO (08:30)
[2024-07-03] MEDS: HEPARIN SOD INJ 5000 UNIT/ML VIAL SC ×2 (08:31→21:16)
[2024-07-03 10:57] LABS: Sodium 123 mMol/L (136-145)
[2024-07-03] MEDS: Magnesium Sulfate 4 GM Ivpb 4 GM/50 ML BAG IV (12:22)
--- NOTE | 2024-07-03 13:52 | PC.PT ---
PT eval only. Patient was xI and at his baseline with ambulation. Patient is safe to ambulate to the bathroom and in the halls with his rollator walker and 1 staff assist. RN made aware.
--- NOTE | 2024-07-03 14:33 | PD.RESPRO ---
Documentation for date of: 07/03/24 Subjective Subjective Interval history: 81- y/o M with PMHx significant for diabetes mellitus, hypertension, ischemic CVA, who was referred to the ER by his primary care physician after routine labs showed low sodium. Per patient he is currently asymptomatic, except for some tingling sensation in his left lower extremity and left shoulder. Mental status is at the baseline. The patient he was seen at [facility] by his PCP, routine labs showed sodium 117, patient was directed to go to the emergency room for admission. Patient reported that he has been trying to lose weight and is on a diet, diet mostly consists of toast, also admitted to drinking excessive amounts of water. Also reported infrequent loose bowel movements, twice last week. 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 Nephrology consulted for management of hyponatremia. Patient initially showed overcorrection of sodium, was placed on D5W with every 2 hours sodium checks. Sodium level decreased appropriately, D5W was stopped and patient placed on fluid restriction. Patient denies weakness, dizziness, paresthesias, nausea, vomiting. Hemoglobin 10.4. Sodium 127, potassium 3.6, BUN 23, creatinine 1.2, EGFR 60. Will continue with fluid restriction and frequent sodium checks. 07/03/2024: Patient seen and examined at bedside. Patient was comfortably, denies fever, chills, nausea, vomiting, abdominal pain, weakness, dizziness, paresthesias. Despite fluid restriction, patient sodium not improving. Sodium 127, down to 123. Potassium 2.5, BUN 25, creatinine 1.3, eGFR 59. Will add salt tabs and continue to monitor. Exam Vital Signs Temp Pulse Resp BP Pulse Ox O2 Del Method 97.0 F 72 16 147/63 H 99 Room Air 07/03/24 11:57 07/03/24 12:00 07/03/24 11:57 07/03/24 11:57 07/03/24 11:57 07/03/24 11:57 Narrative Exam General: AOx3, cooperative, noted temporal wasting Skin: Intact, no cyanosis or edema noted. HEENT: Atraumatic/normocephalic, ADIS, neck supple Heart: RRR, S1 and S2 without clicks or murmurs Lungs: Clear on auscultation bilaterally, no difficulty breathing Abdomen: Soft, nontender. Bowel sounds present . Vascular: Peripheral pulses palpable Neuro: No focal neurological deficits noted. Objective Labs 07/03/24 06:32 07/03/24 14:50 Labs: Laboratory Results - last 24 hr 07/02/24 07/02/24 07/02/24 13:32 15:42 17:35 WBC RBC Hgb Hct MCV MCH MCHC RDW Std Deviation Plt Count Neut % (Auto) Lymph % (Auto) Falls % (Auto) Eos % (Auto) Baso % (Auto) Neut # (Auto) Lymph # (Auto) Falls # (Auto) Eos # (Auto) Baso # (Auto) Immature Gran # (Auto) Absolute Nucleated RBC Immature Gran % Nucleated RBC % Sodium 124 L 125 L 123 L Potassium Chloride Carbon Dioxide Anion Gap BUN Creatinine Estim Creat Clear Calc eGFR BUN/Creatinine Ratio Glucose Calculated Osmolality Calcium Corrected Calcium Phosphorus Magnesium Total Bilirubin AST ALT Alkaline Phosphatase Total Protein Albumin Globulin Albumin/Globulin Ratio 07/02/24 07/02/24 07/03/24 19:35 22:44 02:45 WBC RBC Hgb Hct MCV MCH MCHC RDW Std Deviation Plt Count Neut % (Auto) Lymph % (Auto) Falls % (Auto) Eos % (Auto) Baso % (Auto) Neut # (Auto) Lymph # (Auto) Falls # (Auto) Eos # (Auto) Baso # (Auto) Immature Gran # (Auto) Absolute Nucleated RBC Immature Gran % Nucleated RBC % Sodium 120 L 124 L 126 L Potassium Chloride Carbon Dioxide Anion Gap BUN Creatinine Estim Creat Clear Calc eGFR BUN/Creatinine Ratio Glucose Calculated Osmolality Calcium Corrected Calcium Phosphorus Magnesium Total Bilirubin AST ALT Alkaline Phosphatase Total Protein Albumin Globulin Albumin/Globulin Ratio 07/03/24 07/03/24 06:32 10:40 WBC 6.2 RBC 3.51 L Hgb 10.7 L Hct 27.8 L MCV 79 L MCH 30.5 MCHC 38.5 H RDW Std Deviation 35.8 Plt Count 276 Neut % (Auto) 67 Lymph % (Auto) 15 Falls % (Auto) 12 Eos % (Auto) 7 Baso % (Auto) 0 Neut # (Auto) 4.1 Lymph # (Auto) 0.9 L Falls # (Auto) 0.7 Eos # (Auto) 0.4 Baso # (Auto) 0.0 Immature Gran # (Auto) 0.01 H Absolute Nucleated RBC 0.00 Immature Gran % 0 Nucleated RBC % 0 Sodium 127 L 123 L Potassium 3.5 Chloride 92 L Carbon Dioxide 24.1 Anion Gap 11 BUN 25 H Creatinine 1.3 Estim Creat Clear Calc 35.9 L eGFR 59 L BUN/Creatinine Ratio 19 Glucose 144 H Calculated Osmolality 262 L Calcium 8.7 Corrected Calcium 8.7 Phosphorus 3.8 Magnesium 1.7 Total Bilirubin 0.6 AST 17 ALT 27 Alkaline Phosphatase 69 Total Protein 6.1 Albumin 4.0 Globulin 2.1 L Albumin/Globulin Ratio 1.9 Quality Measures Quality Measures VTE prophylaxis Advance care planning discussed with:: patient Assessment & Plan Assessment Current Active Medications: Generic Name Dose Route Start Last Admin Trade Name Freq PRN Reason Stop Dose Admin Acetaminophen 650 mg 07/01/24 20:38 Acetaminophen 325 Mg Tablet PO 07/31/24 20:37 Q6H PRN PAIN OR FEVER > 101 Dextrose 25 ml 07/01/24 20:50 Dextrose 50%-Water Inj 50 Ml Syringe IV 07/31/24 20:49 Q15MIN PRN BG 50-70 responsive npo pt Dextrose 50 ml 07/01/24 20:50 Dextrose 50%-Water Inj 50 Ml Syringe IV 07/31/24 20:49 Q15MIN PRN BG <50 OR BG <70 & pt unresponsive Diclofenac Sodium 1 gm 07/02/24 12:00 07/03/24 12:07 Diclofenac 1% Top Gel 100 Gm Tube TOP 08/01/24 11:59 1 gm QID DEREJE Administration Glucagon 1 mg 07/01/24 20:50 Glucagon Inj 1 Mg Vial IM Q15MIN PRN BG <70, and no IV access Heparin Sodium (Porcine) 5,000 unit 07/02/24 21:00 07/03/24 08:31 Heparin Sod Inj 5000 Unit/Ml Vial SC 07/16/24 20:59 5,000 unit Q12HR DEREJE Administration Insulin Human Lispro 0 unit 07/02/24 07:30 07/03/24 12:07 Insulin Lispro (Admelog) 1 Unit/0.01 Ml Unit SC 08/01/24 07:29 Not Given AC [facility] Protocol Lisinopril 40 mg 07/02/24 09:00 07/03/24 08:30 Lisinopril 20 Mg Tablet PO 08/01/24 08:59 40 mg QDAY DEREJE Administration Ondansetron HCl 4 mg 07/01/24 20:38 Ondansetron Inj 2 Mg/Ml Inj 2 Ml IV 07/31/24 20:37 Q6H PRN NAUSEA OR VOMITING Protocol Sennosides 2 tab 07/01/24 20:38 Senna Tablet PO 07/31/24 20:37 BID PRN CONSTIPATION Protocol Sodium Chloride 1 gm 07/03/24 21:00 Sodium Chloride 1 Gm Tablet PO 08/02/24 20:59 BID DEREJE Plan 73-year-old male, past medical history of hypertension, [id number] type 2 diabetes, hyperlipidemia, who was referred to the ER by his PCP after routine labs showed hyponatremia; admitted for IV fluid resuscitation and close monitoring. Nephrology consulted for acute hyponatremia. #Hypoosmolar Hyponatremia, asymptomatic Per history, patient follows up sporadically with a provider for his kidney but is unsure at this time about his diagnosis .Hyponatremia likely secondary to complete abstinence from sodium for the past 2 months with lots of water intake. Patient able to urinate and denies having any kidney disease in the past. Per patient, on outpatient labs sodium was 117. Chest x-ray negative for pulmonary mass. CT head negative for any acute process. Patient's hyponatremia slightly overcorrected within the past 24 hours with an increase of 10 mmol Stopped IV fluid resuscitation with NS and switch to IV D5W at 75 cc/h. Sodium remains difficult to correct on fluid restriction without IV fluids. Will add salt tabs. Urine electrolytes taken: Random sodium 60.8, random potassium 17, random chloride 64.9, random creatinine 31. -Sodium checks every 4 hours -Fluid strictly 1500 cc daily -Salt tabs 1 g p.o. 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 Makes good urine. -Avoid nephrotoxic agents -Renally dose medications when applicable -Monitor daily renal function #Elevated troponin, NSTEMI type II #Hypertension #Oes-[id number] type 2 diabetes Management as per primary team DVT prophylaxis: Heparin subcut GI prophylaxis: none Diet: Renal , carb consistent, fluid restrict Lines: PIV CODE STATUS: Full Thank you for allow us to participate in the care of this patient. Plan of care discussed with attending Dr. Arango. Evgeny Saavedra MD PGY?1 Attending Provider Attestation/Addendum Patient seen and examined with resident physician Dr. Langley. Note reviewed, agree with findings and recommendations. Patient was consulted for hyponatremia. Na dropped 127--123. clinicaly alert, awake Added salt tablets
--- NOTE | 2024-07-03 14:51 | ESPR_ITS ---
Documentation for date of: 07/03/24 Subjective Subjective Interval history: 07/03/2024: No acute overnight events to report. Patient seen and examined in hospital bed reports no concerning symptoms such as chest pain, shortness of breath, dizziness, headaches or any abdominal pain. Patient's sodium levels have been in a acceptable level; moreover, nephrology is following the case and we appreciate their recommendations. Patient's electrolytes repleted and we will continue to monitor kidney function with morning labs on 07/04. Expecting discharge within the next 24 hours if the patient remains clinically stable and sodium levels remain within an acceptable range. Exam Vital Signs Temp Pulse Resp BP Pulse Ox O2 Del Method 97.0 F 72 16 147/63 H 99 Room Air 07/03/24 11:57 07/03/24 12:00 07/03/24 11:57 07/03/24 11:57 07/03/24 11:57 07/03/24 11:57 Narrative Exam Physical Exam: GENERAL: Awake, answering questions appropriately, appears stated age, frail appearing/low body weight HEENT: NC/AT. Moist mucosa. PERRLA/EOMI. CARDIO: Heart RRR, no obvious murmurs, no JVD. PULM: No coughing or visible SOB. Lungs CTA B/L. GI: Abdomen soft, NT/ND, +BS. SKIN/MSK/EXT: No wounds/discoloration/rashes/edema/amputations. +Pedal pulses present B/L. NEURO: Oriented x3, Moves extremities x4, no focal neurologic deficits noted. Objective Labs 07/06/24 05:21 07/06/24 05:21 Labs: Laboratory Results - last 24 hr 07/02/24 07/02/24 07/02/24 15:42 17:35 19:35 WBC RBC Hgb Hct MCV MCH MCHC RDW Std Deviation Plt Count Neut % (Auto) Lymph % (Auto) Mcleod % (Auto) Eos % (Auto) Baso % (Auto) Neut # (Auto) Lymph # (Auto) Mcleod # (Auto) Eos # (Auto) Baso # (Auto) Immature Gran # (Auto) Absolute Nucleated RBC Immature Gran % Nucleated RBC % Sodium 125 L 123 L 120 L Potassium Chloride Carbon Dioxide Anion Gap BUN Creatinine Estim Creat Clear Calc eGFR BUN/Creatinine Ratio Glucose Calculated Osmolality Calcium Corrected Calcium Phosphorus Magnesium Total Bilirubin AST ALT Alkaline Phosphatase Total Protein Albumin Globulin Albumin/Globulin Ratio 07/02/24 07/03/24 07/03/24 22:44 02:45 06:32 WBC 6.2 RBC 3.51 L Hgb 10.7 L Hct 27.8 L MCV 79 L MCH 30.5 MCHC 38.5 H RDW Std Deviation 35.8 Plt Count 276 Neut % (Auto) 67 Lymph % (Auto) 15 Mcleod % (Auto) 12 Eos % (Auto) 7 Baso % (Auto) 0 Neut # (Auto) 4.1 Lymph # (Auto) 0.9 L Mcleod # (Auto) 0.7 Eos # (Auto) 0.4 Baso # (Auto) 0.0 Immature Gran # (Auto) 0.01 H Absolute Nucleated RBC 0.00 Immature Gran % 0 Nucleated RBC % 0 Sodium 124 L 126 L 127 L Potassium 3.5 Chloride 92 L Carbon Dioxide 24.1 Anion Gap 11 BUN 25 H Creatinine 1.3 Estim Creat Clear Calc 35.9 L eGFR 59 L BUN/Creatinine Ratio 19 Glucose 144 H Calculated Osmolality 262 L Calcium 8.7 Corrected Calcium 8.7 Phosphorus 3.8 Magnesium 1.7 Total Bilirubin 0.6 AST 17 ALT 27 Alkaline Phosphatase 69 Total Protein 6.1 Albumin 4.0 Globulin 2.1 L Albumin/Globulin Ratio 1.9 07/03/24 10:40 WBC RBC Hgb Hct MCV MCH MCHC RDW Std Deviation Plt Count Neut % (Auto) Lymph % (Auto) Mcleod % (Auto) Eos % (Auto) Baso % (Auto) Neut # (Auto) Lymph # (Auto) Mcleod # (Auto) Eos # (Auto) Baso # (Auto) Immature Gran # (Auto) Absolute Nucleated RBC Immature Gran % Nucleated RBC % Sodium 123 L Potassium Chloride Carbon Dioxide Anion Gap BUN Creatinine Estim Creat Clear Calc eGFR BUN/Creatinine Ratio Glucose Calculated Osmolality Calcium Corrected Calcium Phosphorus Magnesium Total Bilirubin AST ALT Alkaline Phosphatase Total Protein Albumin Globulin Albumin/Globulin Ratio Quality Measures Quality Measures VTE prophylaxis Advance care planning discussed with:: patient Assessment & Plan Assessment Current Active Medications: Generic Name Dose Route Start Last Admin Trade Name Freq PRN Reason Stop Dose Admin Acetaminophen 650 mg 07/01/24 20:38 Acetaminophen 325 Mg Tablet PO 07/31/24 20:37 Q6H PRN PAIN OR FEVER > 101 Dextrose 25 ml 07/01/24 20:50 Dextrose 50%-Water Inj 50 Ml Syringe IV 07/31/24 20:49 Q15MIN PRN BG 50-70 responsive npo pt Dextrose 50 ml 07/01/24 20:50 Dextrose 50%-Water Inj 50 Ml Syringe IV 07/31/24 20:49 Q15MIN PRN BG <50 OR BG <70 & pt unresponsive Diclofenac Sodium 1 gm 07/02/24 12:00 07/03/24 12:07 Diclofenac 1% Top Gel 100 Gm Tube TOP 08/01/24 11:59 1 gm QID DEREJE Administration Glucagon 1 mg 07/01/24 20:50 Glucagon Inj 1 Mg Vial IM Q15MIN PRN BG <70, and no IV access Heparin Sodium (Porcine) 5,000 unit 07/02/24 21:00 07/03/24 08:31 Heparin Sod Inj 5000 Unit/Ml Vial SC 07/16/24 20:59 5,000 unit Q12HR DEREJE Administration Insulin Human Lispro 0 unit 07/02/24 07:30 07/03/24 12:07 Insulin Lispro (Admelog) 1 Unit/0.01 Ml Unit SC 08/01/24 07:29 Not Given AC DEREJE Protocol Lisinopril 40 mg 07/02/24 09:00 07/03/24 08:30 Lisinopril 20 Mg Tablet PO 08/01/24 08:59 40 mg QDAY DEREJE Administration Ondansetron HCl 4 mg 07/01/24 20:38 Ondansetron Inj 2 Mg/Ml Inj 2 Ml IV 07/31/24 20:37 Q6H PRN NAUSEA OR VOMITING Protocol Sennosides 2 tab 07/01/24 20:38 Senna Tablet PO 07/31/24 20:37 BID PRN CONSTIPATION Protocol Sodium Chloride 1 gm 07/03/24 21:00 Sodium Chloride 1 Gm Tablet PO 08/02/24 20:59 BID DEREJE Plan 73-year-old male, past medical history of hypertension, [id number] type 2 diabetes, hyperlipidemia, who was referred to the ER by his PCP after routine labs showed hyponatremia; admitted for IV fluid resuscitation and close monitoring. #Hypoosmolar Hyponatremia Per history, patient follows up sporadically with a provider for his kidney but is unsure at this time about his diagnosis Hyponatremia likely secondary to complete abstinence from sodium for the past 2 months Patient able to urinate and denies having any kidney disease in the past Per patient, on outpatient labs sodium was 117; however, was told to present to the ED by his PCP Chest x-ray negative for pulmonary mass CT head negative for any acute process Patient's hyponatremia slightly overcorrected within the past 24 hours with an increase of 10 mmol Stopped IV fluid resuscitation with NS and switch to IV D5W at 75 cc/h; IV fluids off as sodium is at acceptable range Urine electrolytes as follows; creatinine 31, sodium 60, potassium 17 and chloride 64; all within normal limits Plan: Q4 sodium checks Nephrology consulted, appreciate recommendations Salt tablets 1 g twice daily Fluid restriction 1500 mL #ANIYA on CKD stage II Unknown baseline kidney function, but patient does have history of CKD, lost to follow-up with electrical helper as stated above Plan: Avoid nephrotoxic agents Renally dose medications when applicable Nephrology consulted as above Follow-up with morning labs #Elevated troponin, NSTEMI type II Likely supply/demand ischemia/NSTEMI type II versus NSTEMI type I less likely Patient does have some risk factors for CVA with hypertension, CKD and diabetes - could benefit from cardiac workup once discharged safely patient is asymptomatic does not complain of any chest pain or pressure. No complaint of shortness of breath. Initial troponin elevated on ER labs; peaked and downtrended at 0.052 EKG negative for any acute ischemia Plan: Monitor for any acute changes in symptoms Stopped trending troponin #Hypertension On home lisinopril 30 mg p.o. daily Plan: Continue home medication #Lbe-[id number] type 2 diabetes A1c of 8.1 Patient on home metformin 1000 mg p.o. twice daily Plan: [facility] Diabetic education Hospital Management: Disposition: TELE DVT prophylaxis: Heparin subcut GI prophylaxis: none Diet: Renal , carb consistent Lines: PIV CODE STATUS: Full Patient seen and examined with attending Dr. Wolf Asencio, PGY-1 Attending Provider Attestation/Addendum 73-year-old male with multiple comorbidities including hypertension, type 2 diabetes mellitus, hyperlipidemia with subsequent CVA who presented with weakness found to have hyperosmolar hyponatremia, elevated troponins. As of now, plan to continue gentle IV fluid resuscitation with goal of sodium 121-123. Continue monitoring troponin. As per mentation, patient appears to be back to baseline.I reviewed above note and agree with findings and plans. I have also personally examined the patient with medicine team and went over assessment and plan with medical team including internet marketing intern and resident physician.
--- NOTE | 2024-07-03 15:44 | PC.SS ---
Patient is alert/oriented. Patient was able to verify demographics. Patient was admitted for hyponatremia. Patient resides with . Patient states he was being follows at the [facility]. Patient was independent with ADL's. Patient uses a walker w/seat. Pharmacy: [facility]. Patient drives. Discharge plan is to return home. Alt medical decision maker is , Vivienne,
[2024-07-03 15:46] LABS: Sodium 121 mMol/L (136-145)
[2024-07-03] MEDS: INSULIN LISPRO (AdmeLOG) 1 UNIT/0.01 ML UNIT SC (17:34)
[2024-07-03 19:40] LABS: Sodium 122 mMol/L (136-145)
[2024-07-03] MEDS: SODIUM CHLORIDE 1 GM TABLET PO (21:18)
[2024-07-03 22:41] LABS: Sodium 125 mMol/L (136-145)
[2024-07-04] VITALS (8 sets, daily range): BP systolic 97–145; BP diastolic 53–76; PULSE 64–88; RESP 18–98; TEMP 36.2–36.8; O2SAT 99–100
[2024-07-04 03:18] LABS: Sodium 122 mMol/L (136-145)
[2024-07-04 07:31] LABS: Basophils % (Auto) 0 % (0-2.5); Eosinophils # (Auto) 0.3 Thou/mm3 (0.0-0.5); Eosinophils % (Auto) 6 % (0-10); Hematocrit 28.9 % (41.0-53.0); Hemoglobin 10.9 g/dL (13.5-16.0); Immature Granulocytes % (Auto) 0 % (0-0); Immature Granulocytes Auto 0.01 Thou/mm3 (0.00-0.00); Lymphocytes % (Auto) 18 % (10-50); Mean Corpuscular HGB Conc 37.7 g/dl (31.0-37.0); Mean Corpuscular Hemoglobin 29.8 pg (25.0-35.0); Mean Corpuscular Volume 79 fL (80-100); Monocytes # (Auto) 0.6 Thou/mm3 (0.0-0.8); Monocytes % (Auto) 11 % (0-12); Neutrophils # (Auto) 3.4 Thou/mm3 (1.8-7.7); Neutrophils % (Auto) 64 % (37-80); Nucleated Red Blood Cell % 0 /100 WBC (0); Platelet Count 288 Thou/mm3 (140-440); RDW Standard Deviation 35.9 fL (35.1-43.9); Red Blood Count 3.66 Miln/mm3 (4.50-5.90); White Blood Count 5.3 Thou/mm3 (3.8-10.6)
[2024-07-04 07:48] LABS: Alanine Aminotransferase 29 U/L (10-49); Albumin, Serum 4.2 gm/dL (3.4-4.8); Albumin/Globulin Ratio 1.9 (1.2-2.2); Alkaline Phosphatase 75 U/L (46-116); Anion Gap 13 (7-16); Aspartate Amino Transferase 19 U/L (0-34); BUN/Creatinine Ratio 22 Ratio (12-20); Bilirubin,Total 0.7 mg/dL (0.3-1.2); Blood Urea Nitrogen 38 mg/dL (9-23); Calcium 8.9 mg/dL (8.3-10.6); Calcium (Corrected) 8.9 mg/dL (8.5-10.1); Carbon Dioxide 21.1 mMol/L (20.0-31.0); Chloride 93 mMol/L (98-107); Creatinine (Component) 1.7 mg/dL (0.6-1.3); Estimated Creatinine Clearance 27.3 mL/min (>60); Globulin 2.2 gm/dL (2.3-3.5); Glucose 151 mg/dL (74-106); Magnesium 2.6 mg/dL (1.6-2.6); Osmolality,Calculated 267 (275-295); Phosphorous 4.4 mg/dL (2.4-5.1); Potassium 3.7 mMol/L (3.4-5.1); Sodium 127 mMol/L (136-145); Total Protein 6.4 gm/dL (5.7-8.2); eGFR 43 See Note
[2024-07-04] MEDS: HEPARIN SOD INJ 5000 UNIT/ML VIAL SC ×2 (08:18→21:01)
[2024-07-04] MEDS: Lisinopril 20 MG TABLET 40 MG PO (08:18)
[2024-07-04] MEDS: SODIUM CHLORIDE 1 GM TABLET PO ×3 (08:18→21:01)
[2024-07-04 10:05] LABS: Basophils % (Auto) 0 % (0-2.5); Eosinophils # (Auto) 0.1 Thou/mm3 (0.0-0.5); Eosinophils % (Auto) 2 % (0-10); Hematocrit 28.2 % (41.0-53.0); Hemoglobin 10.7 g/dL (13.5-16.0); Immature Granulocytes % (Auto) 0 % (0-0); Immature Granulocytes Auto 0.01 Thou/mm3 (0.00-0.00); Lymphocytes # (Auto) 0.7 Thou/mm3 (1.0-4.8); Lymphocytes % (Auto) 14 % (10-50); Mean Corpuscular HGB Conc 37.9 g/dl (31.0-37.0); Mean Corpuscular Hemoglobin 29.8 pg (25.0-35.0); Mean Corpuscular Volume 79 fL (80-100); Monocytes # (Auto) 0.5 Thou/mm3 (0.0-0.8); Monocytes % (Auto) 10 % (0-12); Neutrophils # (Auto) 3.8 Thou/mm3 (1.8-7.7); Neutrophils % (Auto) 74 % (37-80); Nucleated Red Blood Cell % 0 /100 WBC (0); Platelet Count 287 Thou/mm3 (140-440); RDW Standard Deviation 36.5 fL (35.1-43.9); Red Blood Count 3.59 Miln/mm3 (4.50-5.90); White Blood Count 5.1 Thou/mm3 (3.8-10.6)
[2024-07-04 11:37] LABS: Alanine Aminotransferase 31 U/L (10-49); Albumin, Serum 4.2 gm/dL (3.4-4.8); Albumin/Globulin Ratio 1.8 (1.2-2.2); Alkaline Phosphatase 73 U/L (46-116); Anion Gap 8 (7-16); Aspartate Amino Transferase 20 U/L (0-34); BUN/Creatinine Ratio 20 Ratio (12-20); Bilirubin,Total 0.6 mg/dL (0.3-1.2); Blood Urea Nitrogen 34 mg/dL (9-23); Calcium 9.3 mg/dL (8.3-10.6); Calcium (Corrected) 9.3 mg/dL (8.5-10.1); Carbon Dioxide 23.5 mMol/L (20.0-31.0); Chloride 91 mMol/L (98-107); Creatinine (Component) 1.7 mg/dL (0.6-1.3); Estimated Creatinine Clearance 27.3 mL/min (>60); Globulin 2.3 gm/dL (2.3-3.5); Glucose 313 mg/dL (74-106); Osmolality,Calculated 265 (275-295); Phosphorous 4.7 mg/dL (2.4-5.1); Potassium 4.1 mMol/L (3.4-5.1); Sodium 122 mMol/L (136-145); Total Protein 6.5 gm/dL (5.7-8.2); eGFR 43 See Note
[2024-07-04] MEDS: INSULIN LISPRO (AdmeLOG) 1 UNIT/0.01 ML UNIT SC (12:00)
--- NOTE | 2024-07-04 13:16 | PD.RESPRO ---
Documentation for date of: 07/04/24 Subjective Subjective Interval history: 07/04/2024: No acute overnight events to report. Patient seen and examined in hospital bed reports no concerning symptoms. Patient sodium is stable; however, patient's acute kidney injury is still present even on repeat renal panel. Patient started on 1 L of NS and we will monitor kidney function overnight. Nephrology is following the patient; appreciate their recommendations. Will continue to monitor the patient for any acute changes. Exam Vital Signs Temp Pulse Resp BP Pulse Ox O2 Del Method 97.1 F 81 19 137/73 H 99 Room Air 07/04/24 12:00 07/04/24 12:00 07/04/24 12:00 07/04/24 12:00 07/04/24 12:00 07/04/24 12:00 Narrative Exam Physical Exam: GENERAL: Awake, answering questions appropriately, appears stated age, frail appearing/low body weight HEENT: NC/AT. Moist mucosa. PERRLA/EOMI. CARDIO: Heart RRR, no obvious murmurs, no JVD. PULM: No coughing or visible SOB. Lungs CTA B/L. GI: Abdomen soft, NT/ND, +BS. SKIN/MSK/EXT: No wounds/discoloration/rashes/edema/amputations. +Pedal pulses present B/L. NEURO: Oriented x3, Moves extremities x4, no focal neurologic deficits noted. Objective Labs 07/06/24 05:21 07/06/24 05:21 Labs: Laboratory Results - last 24 hr 07/03/24 07/03/24 07/03/24 14:50 18:53 22:10 WBC RBC Hgb Hct MCV MCH MCHC RDW Std Deviation Plt Count Neut % (Auto) Lymph % (Auto) [place] % (Auto) Eos % (Auto) Baso % (Auto) Neut # (Auto) Lymph # (Auto) [place] # (Auto) Eos # (Auto) Baso # (Auto) Immature Gran # (Auto) Absolute Nucleated RBC Immature Gran % Nucleated RBC % Sodium 121 L 122 L 125 L Potassium Chloride Carbon Dioxide Anion Gap BUN Creatinine Estim Creat Clear Calc eGFR BUN/Creatinine Ratio Glucose Calculated Osmolality Calcium Corrected Calcium Phosphorus Magnesium Total Bilirubin AST ALT Alkaline Phosphatase Total Protein Albumin Globulin Albumin/Globulin Ratio 07/04/24 07/04/24 07/04/24 03:01 07:09 09:56 WBC 5.3 5.1 RBC 3.66 L 3.59 L Hgb 10.9 L 10.7 L Hct 28.9 L 28.2 L MCV 79 L 79 L MCH 29.8 29.8 MCHC 37.7 H 37.9 H RDW Std Deviation 35.9 36.5 Plt Count 288 287 Neut % (Auto) 64 74 Lymph % (Auto) 18 14 [place] % (Auto) 11 10 Eos % (Auto) 6 2 Baso % (Auto) 0 0 Neut # (Auto) 3.4 3.8 Lymph # (Auto) 1.0 0.7 L [place] # (Auto) 0.6 0.5 Eos # (Auto) 0.3 0.1 Baso # (Auto) 0.0 0.0 Immature Gran # (Auto) 0.01 H 0.01 H Absolute Nucleated RBC 0.00 0.00 Immature Gran % 0 0 Nucleated RBC % 0 0 Sodium 122 L 127 L Potassium 3.7 Chloride 93 L Carbon Dioxide 21.1 Anion Gap 13 BUN 38 H Creatinine 1.7 H Estim Creat Clear Calc 27.3 L eGFR 43 L BUN/Creatinine Ratio 22 H Glucose 151 H Calculated Osmolality 267 L Calcium 8.9 Corrected Calcium 8.9 Phosphorus 4.4 Magnesium 2.6 Total Bilirubin 0.7 AST 19 ALT 29 Alkaline Phosphatase 75 Total Protein 6.4 Albumin 4.2 Globulin 2.2 L Albumin/Globulin Ratio 1.9 07/04/24 11:05 WBC RBC Hgb Hct MCV MCH MCHC RDW Std Deviation Plt Count Neut % (Auto) Lymph % (Auto) [place] % (Auto) Eos % (Auto) Baso % (Auto) Neut # (Auto) Lymph # (Auto) [place] # (Auto) Eos # (Auto) Baso # (Auto) Immature Gran # (Auto) Absolute Nucleated RBC Immature Gran % Nucleated RBC % Sodium 122 L Potassium 4.1 Chloride 91 L Carbon Dioxide 23.5 Anion Gap 8 BUN 34 H Creatinine 1.7 H Estim Creat Clear Calc 27.3 L eGFR 43 L BUN/Creatinine Ratio 20 Glucose 313 H D Calculated Osmolality 265 L Calcium 9.3 Corrected Calcium 9.3 Phosphorus 4.7 Magnesium Total Bilirubin 0.6 AST 20 ALT 31 Alkaline Phosphatase 73 Total Protein 6.5 Albumin 4.2 Globulin 2.3 Albumin/Globulin Ratio 1.8 Quality Measures Quality Measures VTE prophylaxis Advance care planning discussed with:: patient Assessment & Plan Assessment Current Active Medications: Generic Name Dose Route Start Last Admin Trade Name Freq PRN Reason Stop Dose Admin Acetaminophen 650 mg 07/01/24 20:38 Acetaminophen 325 Mg Tablet PO 07/31/24 20:37 Q6H PRN PAIN OR FEVER > 101 Dextrose 25 ml 07/01/24 20:50 Dextrose 50%-Water Inj 50 Ml Syringe IV 07/31/24 20:49 Q15MIN PRN BG 50-70 responsive npo pt Dextrose 50 ml 07/01/24 20:50 Dextrose 50%-Water Inj 50 Ml Syringe IV 07/31/24 20:49 Q15MIN PRN BG <50 OR BG <70 & pt unresponsive Diclofenac Sodium 1 gm 07/02/24 12:00 07/04/24 05:48 Diclofenac 1% Top Gel 100 Gm Tube TOP 08/01/24 11:59 Not Given QID DEREJE Glucagon 1 mg 07/01/24 20:50 Glucagon Inj 1 Mg Vial IM Q15MIN PRN BG <70, and no IV access Heparin Sodium (Porcine) 5,000 unit 07/02/24 21:00 07/04/24 08:18 Heparin Sod Inj 5000 Unit/Ml Vial SC 07/16/24 20:59 5,000 unit Q12HR DEREJE Administration Sodium Chloride 500 mls @ 80 mls/hr 07/04/24 11:52 Ns IV 07/04/24 18:06 .Q6H15M ONE Insulin Human Lispro 0 unit 07/02/24 07:30 07/04/24 12:00 Insulin Lispro (Admelog) 1 Unit/0.01 Ml Unit SC 08/01/24 07:29 4 unit AC DEREJE Administration Protocol Lisinopril 40 mg 07/02/24 09:00 07/04/24 08:18 Lisinopril 20 Mg Tablet PO 08/01/24 08:59 40 mg QDAY DEREJE Administration Ondansetron HCl 4 mg 07/01/24 20:38 Ondansetron Inj 2 Mg/Ml Inj 2 Ml IV 07/31/24 20:37 Q6H PRN NAUSEA OR VOMITING Protocol Sennosides 2 tab 07/01/24 20:38 Senna Tablet PO 07/31/24 20:37 BID PRN CONSTIPATION Protocol Sodium Chloride 1 gm 07/03/24 21:00 07/04/24 08:18 Sodium Chloride 1 Gm Tablet PO 08/02/24 20:59 1 gm BID DEREJE Administration Plan 73-year-old male, past medical history of hypertension, ewv-ykkqldk-asuhukpif type 2 diabetes, hyperlipidemia, who was referred to the ER by his PCP after routine labs showed hyponatremia; admitted for IV fluid resuscitation and close monitoring. #Hypoosmolar Hyponatremia Per history, patient follows up sporadically with a provider for his kidney but is unsure at this time about his diagnosis Hyponatremia likely secondary to complete abstinence from sodium for the past 2 months Patient able to urinate and denies having any kidney disease in the past Per patient, on outpatient labs sodium was 117; however, was told to present to the ED by his PCP Chest x-ray negative for pulmonary mass CT head negative for any acute process Patient's hyponatremia slightly overcorrected within the past 24 hours with an increase of 10 mmol Stopped IV fluid resuscitation with NS and switch to IV D5W at 75 cc/h; IV fluids off as sodium is at acceptable range Urine electrolytes as follows; creatinine 31, sodium 60, potassium 17 and chloride 64; all within normal limits Plan: Q4 sodium checks Nephrology consulted, appreciate recommendations Salt tablets 1 g twice daily Discontinued fluid restriction #ANIYA on CKD stage II Unknown baseline kidney function, but patient does have history of CKD, lost to follow-up with stab setter and driller as stated above Plan: 1 L of NS for IV hydration Avoid nephrotoxic agents Renally dose medications when applicable Nephrology consulted as above Follow-up with morning labs #Elevated troponin, NSTEMI type II Likely supply/demand ischemia/NSTEMI type II versus NSTEMI type I less likely Patient does have some risk factors for CVA with hypertension, CKD and diabetes - could benefit from cardiac workup once discharged safely patient is asymptomatic does not complain of any chest pain or pressure. No complaint of shortness of breath. Initial troponin elevated on ER labs; peaked and downtrended at 0.052 EKG negative for any acute ischemia Plan: Monitor for any acute changes in symptoms Stopped trending troponin #Hypertension On home lisinopril 30 mg p.o. daily Plan: Continue home medication #Qgz-lwdqoho-cbhwkgciv type 2 diabetes A1c of 8.1 Patient on home metformin 1000 mg p.o. twice daily Plan: [facility] Diabetic education Hospital Management: Disposition: TELE DVT prophylaxis: Heparin subcut GI prophylaxis: none Diet: Renal , carb consistent Lines: PIV CODE STATUS: Full Patient seen and examined with attending Dr. Wolf Asencio, PGY-1 Attending Provider Attestation/Addendum 73-year-old male with multiple comorbidities including hypertension, type 2 diabetes mellitus, hyperlipidemia with subsequent CVA who presented with weakness found to have hyperosmolar hyponatremia, elevated troponins. As of now, plan to continue gentle IV fluid resuscitation with improvement in sodium and continue to monitor kidney function as patient was noted to have acute kidney injury. As per mentation, patient appears to be back to baseline.I reviewed above note and agree with findings and plans. I have also personally examined the patient with medicine team and went over assessment and plan with medical team including integrated marketing intern and resident physician.
--- NOTE | 2024-07-04 13:18 | PD.RESPRO ---
Documentation for date of: 07/04/24 Subjective Subjective Interval history: 81- y/o M with PMHx significant for diabetes mellitus, hypertension, ischemic CVA, who was referred to the ER by his primary care physician after routine labs showed low sodium. Per patient he is currently asymptomatic, except for some tingling sensation in his left lower extremity and left shoulder. Mental status is at the baseline. The patient he was seen at health system by his PCP, routine labs showed sodium 117, patient was directed to go to the emergency room for admission. Patient reported that he has been trying to lose weight and is on a diet, diet mostly consists of toast, also admitted to drinking excessive amounts of water. Also reported infrequent loose bowel movements, twice last week. 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 Nephrology consulted for management of hyponatremia. Patient initially showed overcorrection of sodium, was placed on D5W with every 2 hours sodium checks. Sodium level decreased appropriately, D5W was stopped and patient placed on fluid restriction. Patient denies weakness, dizziness, paresthesias, nausea, vomiting. Hemoglobin 10.4. Sodium 127, potassium 3.6, BUN 23, creatinine 1.2, EGFR 60. Will continue with fluid restriction and frequent sodium checks. 07/03/2024: Patient seen and examined at bedside. Patient was comfortably, denies fever, chills, nausea, vomiting, abdominal pain, weakness, dizziness, paresthesias. Despite fluid restriction, patient sodium not improving. Sodium 127, down to 123. Potassium 2.5, BUN 25, creatinine 1.3, eGFR 59. Will add salt tabs and continue to monitor. 07/04/2024: Patient seen and examined at bedside. Patient comfortable, good range of movement, alert and oriented. Patient [place] fever, chills, nausea, vomiting, weakness, dizziness, paresthesias. Patient continues to have difficulty maintaining sodium levels. Sodium 122, potassium 4.1, bicarb 23.5, BUN 34, creatinine 1.7, EGFR 43. Exam Vital Signs Temp Pulse Resp BP Pulse Ox O2 Del Method 97.1 F 81 19 137/73 H 99 Room Air 07/04/24 12:00 07/04/24 12:00 07/04/24 12:00 07/04/24 12:00 07/04/24 12:00 07/04/24 12:00 Narrative Exam General: AOx3, cooperative, noted temporal wasting Skin: Intact, no cyanosis or edema noted. HEENT: Atraumatic/normocephalic, ADIS, neck supple Heart: RRR, S1 and S2 without clicks or murmurs Lungs: Clear on auscultation bilaterally, no difficulty breathing Abdomen: Soft, nontender. Bowel sounds present . Vascular: Peripheral pulses palpable Neuro: No focal neurological deficits noted. Objective Labs 07/07/24 04:23 07/07/24 04:23 Labs: Laboratory Results - last 24 hr 07/03/24 07/03/24 07/03/24 14:50 18:53 22:10 WBC RBC Hgb Hct MCV MCH MCHC RDW Std Deviation Plt Count Neut % (Auto) Lymph % (Auto) [place] % (Auto) Eos % (Auto) Baso % (Auto) Neut # (Auto) Lymph # (Auto) [place] # (Auto) Eos # (Auto) Baso # (Auto) Immature Gran # (Auto) Absolute Nucleated RBC Immature Gran % Nucleated RBC % Sodium 121 L 122 L 125 L Potassium Chloride Carbon Dioxide Anion Gap BUN Creatinine Estim Creat Clear Calc eGFR BUN/Creatinine Ratio Glucose Calculated Osmolality Calcium Corrected Calcium Phosphorus Magnesium Total Bilirubin AST ALT Alkaline Phosphatase Total Protein Albumin Globulin Albumin/Globulin Ratio 07/04/24 07/04/24 07/04/24 03:01 07:09 09:56 WBC 5.3 5.1 RBC 3.66 L 3.59 L Hgb 10.9 L 10.7 L Hct 28.9 L 28.2 L MCV 79 L 79 L MCH 29.8 29.8 MCHC 37.7 H 37.9 H RDW Std Deviation 35.9 36.5 Plt Count 288 287 Neut % (Auto) 64 74 Lymph % (Auto) 18 14 [place] % (Auto) 11 10 Eos % (Auto) 6 2 Baso % (Auto) 0 0 Neut # (Auto) 3.4 3.8 Lymph # (Auto) 1.0 0.7 L [place] # (Auto) 0.6 0.5 Eos # (Auto) 0.3 0.1 Baso # (Auto) 0.0 0.0 Immature Gran # (Auto) 0.01 H 0.01 H Absolute Nucleated RBC 0.00 0.00 Immature Gran % 0 0 Nucleated RBC % 0 0 Sodium 122 L 127 L Potassium 3.7 Chloride 93 L Carbon Dioxide 21.1 Anion Gap 13 BUN 38 H Creatinine 1.7 H Estim Creat Clear Calc 27.3 L eGFR 43 L BUN/Creatinine Ratio 22 H Glucose 151 H Calculated Osmolality 267 L Calcium 8.9 Corrected Calcium 8.9 Phosphorus 4.4 Magnesium 2.6 Total Bilirubin 0.7 AST 19 ALT 29 Alkaline Phosphatase 75 Total Protein 6.4 Albumin 4.2 Globulin 2.2 L Albumin/Globulin Ratio 1.9 07/04/24 11:05 WBC RBC Hgb Hct MCV MCH MCHC RDW Std Deviation Plt Count Neut % (Auto) Lymph % (Auto) [place] % (Auto) Eos % (Auto) Baso % (Auto) Neut # (Auto) Lymph # (Auto) [place] # (Auto) Eos # (Auto) Baso # (Auto) Immature Gran # (Auto) Absolute Nucleated RBC Immature Gran % Nucleated RBC % Sodium 122 L Potassium 4.1 Chloride 91 L Carbon Dioxide 23.5 Anion Gap 8 BUN 34 H Creatinine 1.7 H Estim Creat Clear Calc 27.3 L eGFR 43 L BUN/Creatinine Ratio 20 Glucose 313 H D Calculated Osmolality 265 L Calcium 9.3 Corrected Calcium 9.3 Phosphorus 4.7 Magnesium Total Bilirubin 0.6 AST 20 ALT 31 Alkaline Phosphatase 73 Total Protein 6.5 Albumin 4.2 Globulin 2.3 Albumin/Globulin Ratio 1.8 Quality Measures Quality Measures VTE prophylaxis Advance care planning discussed with:: patient Assessment & Plan Assessment Current Active Medications: Generic Name Dose Route Start Last Admin Trade Name Freq PRN Reason Stop Dose Admin Acetaminophen 650 mg 07/01/24 20:38 Acetaminophen 325 Mg Tablet PO 07/31/24 20:37 Q6H PRN PAIN OR FEVER > 101 Dextrose 25 ml 07/01/24 20:50 Dextrose 50%-Water Inj 50 Ml Syringe IV 07/31/24 20:49 Q15MIN PRN BG 50-70 responsive npo pt Dextrose 50 ml 07/01/24 20:50 Dextrose 50%-Water Inj 50 Ml Syringe IV 07/31/24 20:49 Q15MIN PRN BG <50 OR BG <70 & pt unresponsive Diclofenac Sodium 1 gm 07/02/24 12:00 07/04/24 05:48 Diclofenac 1% Top Gel 100 Gm Tube TOP 08/01/24 11:59 Not Given QID DEREJE Glucagon 1 mg 07/01/24 20:50 Glucagon Inj 1 Mg Vial IM Q15MIN PRN BG <70, and no IV access Heparin Sodium (Porcine) 5,000 unit 07/02/24 21:00 07/04/24 08:18 Heparin Sod Inj 5000 Unit/Ml Vial SC 07/16/24 20:59 5,000 unit Q12HR DEREJE Administration Sodium Chloride 500 mls @ 80 mls/hr 07/04/24 11:52 Ns IV 07/04/24 18:06 .Q6H15M ONE Insulin Human Lispro 0 unit 07/02/24 07:30 07/04/24 12:00 Insulin Lispro (Admelog) 1 Unit/0.01 Ml Unit SC 08/01/24 07:29 4 unit AC DEREJE Administration Protocol Lisinopril 40 mg 07/02/24 09:00 07/04/24 08:18 Lisinopril 20 Mg Tablet PO 08/01/24 08:59 40 mg QDAY DEREJE Administration Ondansetron HCl 4 mg 07/01/24 20:38 Ondansetron Inj 2 Mg/Ml Inj 2 Ml IV 07/31/24 20:37 Q6H PRN NAUSEA OR VOMITING Protocol Sennosides 2 tab 07/01/24 20:38 Senna Tablet PO 07/31/24 20:37 BID PRN CONSTIPATION Protocol Sodium Chloride 1 gm 07/03/24 21:00 07/04/24 08:18 Sodium Chloride 1 Gm Tablet PO 08/02/24 20:59 1 gm BID DEREJE Administration Plan 73-year-old male, past medical history of hypertension, [id number]-[id number] type 2 diabetes, hyperlipidemia, who was referred to the ER by his PCP after routine labs showed hyponatremia; admitted for IV fluid resuscitation and close monitoring. Nephrology consulted for acute hyponatremia. #Hypoosmolar Hyponatremia, asymptomatic Per history, patient follows up sporadically with a provider for his kidney but is unsure at this time about his diagnosis .Hyponatremia likely secondary to complete abstinence from sodium for the past 2 months with lots of water intake. Patient able to urinate and denies having any kidney disease in the past. Per patient, on outpatient labs sodium was 117. Chest x-ray negative for pulmonary mass. CT head negative for any acute process. Patient's hyponatremia slightly overcorrected within the past 24 hours with an increase of 10 mmol Stopped IV fluid resuscitation with NS and switch to IV D5W at 75 cc/h. Sodium remains difficult to correct on fluid restriction without IV fluids. Will add salt tabs. Urine electrolytes taken: Random sodium 60.8, random potassium 17, random chloride 64.9, random creatinine 31. Sodium continues to be difficult to correct, increased salt tabs. -Sodium checks every 4 hours -Fluid strictly 1500 cc daily -Salt tabs 1 g p.o. 3 times daily #ANIYA on CKD stage II, improving Unknown baseline kidney function, but patient does have history of CKD, lost to follow-up with general road production manager as stated above. Makes good urine. -Avoid nephrotoxic agents -Renally dose medications when applicable -Monitor daily renal function #Elevated troponin, NSTEMI type II #Hypertension #Yai-rkylpkp-pjflcnskn type 2 diabetes Management as per primary team DVT prophylaxis: Heparin subcut GI prophylaxis: none Diet: Renal , carb consistent, fluid restrict Lines: PIV CODE STATUS: Full Thank you for allow us to participate in the care of this patient. Plan of care discussed with attending Dr. Arango. Evgeny Saavedra MD PGY?1 Attending Provider Attestation/Addendum Patient currently seen and examined with resident physician Dr. Saavedra. Note reviewed, agree with findings and recommendations.
[2024-07-04] MEDS: SODIUM CHLORIDE 0.9% 500 ML 500 ML 80 ML IV (14:03)
--- NOTE | 2024-07-04 14:45 | PC.SS ---
Rounding: One more day of fluids DC tomorrow
[2024-07-04 16:07] LABS: Albumin, Serum 4.4 gm/dL (3.4-4.8); Anion Gap 9 (7-16); BUN/Creatinine Ratio 22 Ratio (12-20); Blood Urea Nitrogen 41 mg/dL (9-23); Calcium 9.2 mg/dL (8.3-10.6); Calcium (Corrected) 9.2 mg/dL (8.5-10.1); Carbon Dioxide 24.2 mMol/L (20.0-31.0); Chloride 93 mMol/L (98-107); Creatinine (Component) 1.9 mg/dL (0.6-1.3); Estimated Creatinine Clearance 24.5 mL/min (>60); Glucose 86 mg/dL (74-106); Osmolality,Calculated 262 (275-295); Phosphorous 5.3 mg/dL (2.4-5.1); Potassium 4.4 mMol/L (3.4-5.1); Sodium 126 mMol/L (136-145); eGFR 37 See Note
[2024-07-04 17:05] LABS: Sodium 128 mMol/L (136-145)
[2024-07-04 21:54] LABS: Sodium 125 mMol/L (136-145)
[2024-07-05] VITALS (13 sets, daily range): BP systolic 113–159; BP diastolic 55–85; PULSE 69–132; RESP 15–20; TEMP 36.1–36.6; O2SAT 96–99
--- NOTE | 2024-07-05 03:52 | EKG_ITS ---
[facility] Test Date: 2024-07-05 Pat Name: CHALINO CHRISTINA [facility] Industrial Locomotive Operator: CHRISTOPHER : 1950 Requested By: Jessica Caicedo Order Number: [id number] Reading MD: Jessica Caicedo Measurements Intervals [place] Rate: 110 P: AR: QRS: 79 QRSD: 90 T: 75 QT: 321 QTc: 435 Interpretive Statements ATRIAL FLUTTER/TACHYCARDIA WITH RAPID VENTRICULAR RESPONSE ABNORMAL RHYTHM ECG Compared to ECG 07/01/2024 15:39:05 Sinus rhythm no longer present First degree AV block no longer present /store/S0/[id number]
--- NOTE | 2024-07-05 04:21 | ECHO_ITS ---
Transthoracic Echo Report Ht (in): 64 Wt (lb): 106 Exam Location: Portable Status: Inpatient Clerk General: Indications: Procedure Performed: BP: / HR: 70 Technical Quality: Technically difficult study MEASUREMENTS (Male / Female) Normal Values 2D ECHO LV Diastolic Diameter PLAX 4.1 cm 4.2 - 5.9 / 3.9 - 5.3 cm LV Systolic Diameter PLAX 2.6 cm IVS Diastolic Thickness 1.0 cm 0.6 - 1.0 / 0.6 - 0.9 cm LVPW Diastolic Thickness 1.0 cm 0.6 - 1.0 / 0.6 - 0.9 cm LV Relative Wall Thickness 0.5 LVOT Diameter 1.7 cm Aortic Root Diameter 3.5 cm LA Systolic Diameter LX 2.9 cm 3.0 - 4.0 / 2.7 - 3.8 cm LA Volume Index 24.8 cm?/m? 16 - 28 cm?/m? DOPPLER AV Peak Velocity 115.0 cm/s AV Peak Gradient 5.3 mmHg AV Mean Gradient 4.0 mmHg AV Velocity Time Integral 21.7 cm LVOT Peak Velocity 111.0 cm/s LVOT Peak Gradient 4.9 mmHg LVOT Velocity Time Integral 25.6 cm LVOT Cardiac Index 2775.5 cm?/min?m? AV Area Cont Eq vti 2.7 cm? AV Area Cont Eq pk 2.2 cm? MV Area PHT 2.9 cm? Mitral E Point Velocity 62.5 cm/s Mitral A Point Velocity 80.8 cm/s Mitral E to A Ratio 0.8 LV E' Lateral Velocity 9.9 cm/s Mitral E to LV E' Lateral Ratio 6.3 LV E' Septal Velocity 7.5 cm/s Mitral E to LV E' Septal Ratio 8.3 FINDINGS Left Ventricle Normal left ventricular size, wall thickness, systolic function with no obvious regional wall motion abnormalities. There is grade I diastolic dysfunction of the left ventricle (impaired relaxation pattern). The left ventricular ejection fraction is normal, estimated at 55-60%. Right Ventricle The right ventricle is normal in size and systolic function. The estimated right ventricular systolic pressure, 20 mmHg. Left Atrium The left atrium is normal by two-dimensional, color flow and Doppler imaging with no structural abnormalities, no thrombus formation present. Right Atrium The right atrium is normal by two-dimensional imaging, color flow and Doppler imaging with no structural abnormalities, no thrombus formation present. Atrial Septum The interatrial septum appears normal with no evidence of a shunt. Aorta The aorta is normal by two-dimensional, color flow and Doppler interrogation. Mitral Valve Trace to mild mitral regurgitation. Mild mitral annular calcification. Aortic Valve Findings consistent with vegetation on the aortic valve. Aortic valve sclerosis. Diffuse calcification of the aortic valve. Trace to mild aortic valve regurgitation. Tricuspid Valve There is trace tricuspid valve regurgitation. Pulmonic Valve The pulmonic valve is not well visualized. There is no significant pulmonic valve regurgitation. Vessels The pulmonary artery appears normal. The inferior vena cava pulmonary and hepatic veins appear normal. Pericardium The pericardium is normal by two-dimensional imaging. There is no significant pericardial effusion. CONCLUSIONS Indication: Shortness of breath Suboptimal and poor quality images which could affect the interpretation of the study. Normal LV size and function with an estimated LVEF of 55 to 60%. Diastolic dysfunction stage I. Normal RV size and function with an estimated RVSP of 20 mmHg. Moderate aortic valve calcification with moderate aortic valve sclerosis without stenosis. Mild to moderate MAC. Mild MR and mild TR. Pedro Luis Almazan (Electronically Signed) Final Date: 05 Jul 2024 20:11
--- NOTE | 2024-07-05 04:22 | PC.NURSE ---
Patient agitated, alert, oriented, expressed of wanting to go home. Dr Espinosa at bedside assessing patient.
[2024-07-05] MEDS: DILTIAZEM INJ 5 MG/ML VIAL 5 ML 15 MG IV (04:55)
--- NOTE | 2024-07-05 05:06 | PD.RESEVENT ---
Documentation for date of: 07/05/24 Event Note Event Note: RN called about patient HR being in the 120's, telemetry reported new onset Afultter, EKG was done which confirmed, A Flutter with rapid ventricular response. Previous EKG on 07/01/24 was sinus rythm with 1st degree AVB. Evaluated the patient in the room, stable vitals BP in the 150's, saturating well on room air , no respiratory distress. HR fluctutating between 120's - 150's on tele box. Pt denied chest pain or dyspnea, but was more agitated than baseline. He was AO x 2 , no focal neurological deficits. Confused speech. Per RN patient has been confused for her since yesterday. Admitted for Hypo NA, current Na 125. #New onset Aflutter with RVR Plan: - Ordered Diltiazim 15mg IV x1 , given new onset A flutter, consider anticoagulation if patient continues to stay Aflutter > 48hrs. - PO diltiazim 30mg TID with holding parameters. Quresh PGY2
--- NOTE | 2024-07-05 06:10 | PC.NURSE ---
Patient refused to take his medication at this time, states will wait till his family will be in.
[2024-07-05 06:30] LABS: Basophils % (Auto) 0 % (0-2.5); Eosinophils # (Auto) 0.1 Thou/mm3 (0.0-0.5); Eosinophils % (Auto) 2 % (0-10); Hematocrit 34.4 % (41.0-53.0); Hemoglobin 12.3 g/dL (13.5-16.0); Immature Granulocytes % (Auto) 0 % (0-0); Immature Granulocytes Auto 0.02 Thou/mm3 (0.00-0.00); Lymphocytes # (Auto) 1.1 Thou/mm3 (1.0-4.8); Lymphocytes % (Auto) 19 % (10-50); Mean Corpuscular HGB Conc 35.8 g/dl (31.0-37.0); Mean Corpuscular Hemoglobin 29.6 pg (25.0-35.0); Mean Corpuscular Volume 83 fL (80-100); Monocytes # (Auto) 0.5 Thou/mm3 (0.0-0.8); Monocytes % (Auto) 10 % (0-12); Neutrophils # (Auto) 3.7 Thou/mm3 (1.8-7.7); Neutrophils % (Auto) 68 % (37-80); Nucleated Red Blood Cell % 0 /100 WBC (0); Platelet Count 320 Thou/mm3 (140-440); RDW Standard Deviation 38.3 fL (35.1-43.9); Red Blood Count 4.15 Miln/mm3 (4.50-5.90); White Blood Count 5.4 Thou/mm3 (3.8-10.6)
[2024-07-05] MEDS: INSULIN LISPRO (AdmeLOG) 1 UNIT/0.01 ML UNIT SC ×3 (07:44→17:12)
[2024-07-05 07:45] LABS: Alanine Aminotransferase 37 U/L (10-49); Albumin, Serum 4.7 gm/dL (3.4-4.8); Alkaline Phosphatase 83 U/L (46-116); Anion Gap 14 (7-16); Aspartate Amino Transferase 25 U/L (0-34); BUN/Creatinine Ratio 25 Ratio (12-20); Bilirubin,Total 0.6 mg/dL (0.3-1.2); Blood Urea Nitrogen 45 mg/dL (9-23); Calcium 9.1 mg/dL (8.3-10.6); Calcium (Corrected) 9.1 mg/dL (8.5-10.1); Carbon Dioxide 18.9 mMol/L (20.0-31.0); Chloride 96 mMol/L (98-107); Creatinine (Component) 1.8 mg/dL (0.6-1.3); Estimated Creatinine Clearance 25.9 mL/min (>60); Globulin 2.4 gm/dL (2.3-3.5); Glucose 235 mg/dL (74-106); Osmolality,Calculated 278 (275-295); Sodium 129 mMol/L (136-145); Total Protein 7.1 gm/dL (5.7-8.2); eGFR 40 See Note
[2024-07-05] MEDS: HEPARIN SOD INJ 5000 UNIT/ML VIAL SC ×2 (08:33→21:53)
[2024-07-05] MEDS: Lisinopril 20 MG TABLET 40 MG PO (08:34)
[2024-07-05 09:16] LABS: Magnesium 2.4 mg/dL (1.6-2.6)
--- NOTE | 2024-07-05 10:32 | EKG_ITS ---
[facility] Test Date: 2024-07-05 Pat Name: CHALINO CHRISTINA [facility] Internal Controls Analyst: CAITLIN : 1950 Requested By: Kem Asencio Order Number: [id number] Reading MD: Kem Asencio Measurements Intervals [place] Rate: 74 P: 155 VT: 257 QRS: 146 QRSD: 89 T: 149 QT: 347 QTc: 386 Interpretive Statements ECTOPIC ATRIAL RHYTHM WITH FIRST DEGREE AV BLOCK WITH OCCASIONAL SUPRAVENTRICULAR PREMATURE COMPLEXES LEFT POSTERIOR FASCICULAR BLOCK NONSPECIFIC T-WAVE ABNORMALITY Compared to ECG 07/05/2024 04:02:36 Ectopic atrial rhythm now present First degree AV block now present Left posterior fascicular block now present T-wave abnormality now present Atrial flutter no longer present /store/S0/[id number]/[id number]
[2024-07-05 11:01] LABS: Free T4 (Free Thyroxine) 1.22 ng/dL (0.89-1.76); Thyroid Stimulating Hormone 0.57 uIU/mL (0.55-4.78)
--- NOTE | 2024-07-05 13:18 | PD.RESPRO ---
Documentation for date of: 07/05/24 Subjective Subjective Interval history: 81- y/o M with PMHx significant for diabetes mellitus, hypertension, ischemic CVA, who was referred to the ER by his primary care physician after routine labs showed low sodium. Per patient he is currently asymptomatic, except for some tingling sensation in his left lower extremity and left shoulder. Mental status is at the baseline. The patient he was seen at [facility] by his PCP, routine labs showed sodium 117, patient was directed to go to the emergency room for admission. Patient reported that he has been trying to lose weight and is on a diet, diet mostly consists of toast, also admitted to drinking excessive amounts of water. Also reported infrequent loose bowel movements, twice last week. In the ER, patient was given 250 mL NS, initial labs showed sodium improved to 120, BUN 27, creatinine 1.6, unknown baseline kidney function, patient did endorse having a past medical history of kidney disorders but has been noncompliant with following up with [employer] technician. Nephrology consulted for management of hyponatremia. Patient initially showed overcorrection of sodium, was placed on D5W with every 2 hours sodium checks. Sodium level decreased appropriately, D5W was stopped and patient placed on fluid restriction. Patient denies weakness, dizziness, paresthesias, nausea, vomiting. Hemoglobin 10.4. Sodium 127, potassium 3.6, BUN 23, creatinine 1.2, EGFR 60. Will continue with fluid restriction and frequent sodium checks. 07/03/2024: Patient seen and examined at bedside. Patient was comfortably, denies fever, chills, nausea, vomiting, abdominal pain, weakness, dizziness, paresthesias. Despite fluid restriction, patient sodium not improving. Sodium 127, down to 123. Potassium 2.5, BUN 25, creatinine 1.3, eGFR 59. Will add salt tabs and continue to monitor. 07/04/2024: Patient seen and examined at bedside. Patient comfortable, good range of movement, alert and oriented. Patient fever, chills, nausea, vomiting, weakness, dizziness, paresthesias. Patient continues to have difficulty maintaining sodium levels. Sodium 122, potassium 4.1, bicarb 23.5, BUN 34, creatinine 1.7, EGFR 43. 07/05/2024: Patient seen and examined at bedside. Patient comfortable, good range of movement, alert and oriented. Patient sodium improved to 129 this morning, patient is stable. Overnight, patient had heart rate of 120 on telemetry, EKG was done which showed a flutter with rapid ventricular response, cardiology consulted. Exam Vital Signs Temp Pulse Resp BP Pulse Ox O2 Del Method 97.3 F 88 20 113/58 L 99 Room Air 07/05/24 08:00 07/05/24 12:00 07/05/24 08:00 07/05/24 08:34 07/05/24 08:00 07/05/24 08:00 Narrative Exam General: AOx3, cooperative, noted temporal wasting Skin: Intact, no cyanosis or edema noted. HEENT: Atraumatic/normocephalic, ADIS, neck supple Heart: RRR, S1 and S2 without clicks or murmurs Lungs: Clear on auscultation bilaterally, no difficulty breathing Abdomen: Soft, nontender. Bowel sounds present . Vascular: Peripheral pulses palpable Neuro: No focal neurological deficits noted. Objective Labs 07/07/24 04:23 07/07/24 04:23 Labs: Laboratory Results - last 24 hr 07/04/24 07/04/24 07/04/24 15:30 16:46 21:02 WBC RBC Hgb Hct MCV MCH MCHC RDW Std Deviation Plt Count Neut % (Auto) Lymph % (Auto) [place] % (Auto) Eos % (Auto) Baso % (Auto) Neut # (Auto) Lymph # (Auto) [place] # (Auto) Eos # (Auto) Baso # (Auto) Immature Gran # (Auto) Absolute Nucleated RBC Immature Gran % Nucleated RBC % Sodium 126 L 128 L 125 L Potassium 4.4 Chloride 93 L Carbon Dioxide 24.2 Anion Gap 9 BUN 41 H Creatinine 1.9 H Estim Creat Clear Calc 24.5 L eGFR 37 L BUN/Creatinine Ratio 22 H Glucose 86 D Calculated Osmolality 262 L Calcium 9.2 Corrected Calcium 9.2 Phosphorus 5.3 H Magnesium Total Bilirubin AST ALT Alkaline Phosphatase Total Protein Albumin 4.4 Globulin Albumin/Globulin Ratio TSH Free T4 07/05/24 07/05/24 05:24 05:29 WBC 5.4 RBC 4.15 L Hgb 12.3 L Hct 34.4 L MCV 83 MCH 29.6 MCHC 35.8 RDW Std Deviation 38.3 Plt Count 320 D Neut % (Auto) 68 Lymph % (Auto) 19 [place] % (Auto) 10 Eos % (Auto) 2 Baso % (Auto) 0 Neut # (Auto) 3.7 Lymph # (Auto) 1.1 [place] # (Auto) 0.5 Eos # (Auto) 0.1 Baso # (Auto) 0.0 Immature Gran # (Auto) 0.02 H Absolute Nucleated RBC 0.00 Immature Gran % 0 Nucleated RBC % 0 Sodium 129 L Potassium 4.0 Chloride 96 L Carbon Dioxide 18.9 L Anion Gap 14 BUN 45 H Creatinine 1.8 H Estim Creat Clear Calc 25.9 L eGFR 40 L BUN/Creatinine Ratio 25 H Glucose 235 H D Calculated Osmolality 278 Calcium 9.1 Corrected Calcium 9.1 Phosphorus Cancelled Magnesium 2.4 Total Bilirubin 0.6 AST 25 ALT 37 Alkaline Phosphatase 83 Total Protein 7.1 Albumin 4.7 Globulin 2.4 Albumin/Globulin Ratio 2.0 TSH 0.57 Free T4 1.22 Quality Measures Quality Measures VTE prophylaxis Advance care planning discussed with:: patient Assessment & Plan Assessment Current Active Medications: Generic Name Dose Route Start Last Admin Trade Name Freq PRN Reason Stop Dose Admin Acetaminophen 650 mg 07/01/24 20:38 Acetaminophen 325 Mg Tablet PO 07/31/24 20:37 Q6H PRN PAIN OR FEVER > 101 Dextrose 25 ml 07/01/24 20:50 Dextrose 50%-Water Inj 50 Ml Syringe IV 07/31/24 20:49 Q15MIN PRN BG 50-70 responsive npo pt Dextrose 50 ml 07/01/24 20:50 Dextrose 50%-Water Inj 50 Ml Syringe IV 07/31/24 20:49 Q15MIN PRN BG <50 OR BG <70 & pt unresponsive Diclofenac Sodium 1 gm 07/02/24 12:00 07/05/24 11:11 Diclofenac 1% Top Gel 100 Gm Tube TOP 08/01/24 11:59 Not Given QID DEREJE Diltiazem HCl 30 mg 07/05/24 06:00 07/05/24 07:15 Diltiazem 30 Mg Tablet PO 08/04/24 05:59 Not Given TID DEREJE Glucagon 1 mg 07/01/24 20:50 Glucagon Inj 1 Mg Vial IM Q15MIN PRN BG <70, and no IV access Heparin Sodium (Porcine) 5,000 unit 07/02/24 21:00 07/05/24 08:33 Heparin Sod Inj 5000 Unit/Ml Vial SC 07/16/24 20:59 5,000 unit Q12HR DEREJE Administration Insulin Human Lispro 0 unit 07/02/24 07:30 07/05/24 11:28 Insulin Lispro (Admelog) 1 Unit/0.01 Ml Unit SC 08/01/24 07:29 2 unit AC DEREJE Administration Protocol Lisinopril 40 mg 07/02/24 09:00 07/05/24 08:34 Lisinopril 20 Mg Tablet PO 08/01/24 08:59 40 mg QDAY DEREJE Administration Ondansetron HCl 4 mg 07/01/24 20:38 Ondansetron Inj 2 Mg/Ml Inj 2 Ml IV 07/31/24 20:37 Q6H PRN NAUSEA OR VOMITING Protocol Sennosides 2 tab 07/01/24 20:38 Senna Tablet PO 07/31/24 20:37 BID PRN CONSTIPATION Protocol Sodium Chloride 1 gm 07/05/24 14:00 Sodium Chloride 1 Gm Tablet PO 08/04/24 13:59 TID DEREJE Plan 73-year-old male, past medical history of hypertension, [id number] type 2 diabetes, hyperlipidemia, who was referred to the ER by his PCP after routine labs showed hyponatremia; admitted for IV fluid resuscitation and close monitoring. Nephrology consulted for acute hyponatremia. #Hypoosmolar Hyponatremia, asymptomatic Per history, patient follows up sporadically with a provider for his kidney but is unsure at this time about his diagnosis .Hyponatremia likely secondary to complete abstinence from sodium for the past 2 months with lots of water intake. Patient able to urinate and denies having any kidney disease in the past. Per patient, on outpatient labs sodium was 117. Chest x-ray negative for pulmonary mass. CT head negative for any acute process. Patient's hyponatremia slightly overcorrected within the past 24 hours with an increase of 10 mmol Stopped IV fluid resuscitation with NS and switch to IV D5W at 75 cc/h. Sodium remains difficult to correct on fluid restriction without IV fluids. Will add salt tabs. Urine electrolytes taken: Random sodium 60.8, random potassium 17, random chloride 64.9, random creatinine 31. Sodium continues to be difficult to correct, increased salt tabs. -Sodium checks daily -Fluid strictly 1500 cc daily -Salt tabs 1 g p.o. 3 times daily #ANIYA on CKD stage II, improving Unknown baseline kidney function, but patient does have history of CKD, lost to follow-up with [employer] technician as stated above. Makes good urine. -Avoid nephrotoxic agents -Renally dose medications when applicable -Monitor daily renal function #Elevated troponin, NSTEMI type II #Hypertension #[id number]-teblqdxcv type 2 diabetes #Paroxysmal atrial flutter Management as per primary team DVT prophylaxis: Heparin subcut GI prophylaxis: none Diet: Renal , carb consistent, fluid restrict Lines: PIV CODE STATUS: Full Thank you for allow us to participate in the care of this patient. Plan of care discussed with attending Dr. Pedro. Mary Ortiz PGY?1 Attending Provider Attestation/Addendum Pt is seen and examined. Labs and investigations are reviewed. Agree witth assessment and plan by resident. agree with findings. Harshad Pedro MD
[2024-07-05] MEDS: DILTIAZEM 30 MG TABLET PO ×2 (13:28→21:51)
[2024-07-05] MEDS: SODIUM CHLORIDE 1 GM TABLET PO ×2 (13:28→21:51)
--- NOTE | 2024-07-05 13:33 | PC.SS ---
Addendum entered by HEMALATHA Camilo 07/05/24 14:44: Rounding note: pending cardio consult. Possible d/c tomorrow. Original Note: Patient's son Charly phone number: .
--- NOTE | 2024-07-05 13:50 | ESPR_ITS ---
Documentation for date of: 07/05/24 Subjective Subjective Interval history: 07/05/2024: Overnight, patient had heart rate of 120 on telemetry, EKG was done which showed a flutter with rapid ventricular response. Patient was given x 150 mg IV diltiazem and then started on diltiazem 30 mg p.o. 3 times daily with holding parameters. Patient was also noted to be more confused on examination but was able to answer orientation questions. Patient seen and examined in hospital bed, at his baseline mental status; moreover, responding to questions appropriately. Patient is currently in sinus rhythm but due to the finding as above, consulted cardiology and will obtain echo and discuss risks and benefits of anticoagulation with the patient and his family. Will continue monitor for any acute changes, patient's sodium levels are nearly back to normal levels. Exam Vital Signs Temp Pulse Resp BP Pulse Ox O2 Del Method 97.3 F 88 20 158/71 H 99 Room Air 07/05/24 08:00 07/05/24 13:28 07/05/24 08:00 07/05/24 13:28 07/05/24 08:00 07/05/24 08:00 Narrative Exam Physical Exam: GENERAL: Awake, answering questions appropriately, appears stated age, frail appearing/low body weight HEENT: NC/AT. Moist mucosa. PERRLA/EOMI. CARDIO: Heart RRR, no obvious murmurs, no JVD. PULM: No coughing or visible SOB. Lungs CTA B/L. GI: Abdomen soft, NT/ND, +BS. SKIN/MSK/EXT: No wounds/discoloration/rashes/edema/amputations. +Pedal pulses present B/L. NEURO: Oriented x3, Moves extremities x4, no focal neurologic deficits noted. Objective Labs 07/06/24 05:21 07/06/24 05:21 Labs: Laboratory Results - last 24 hr 07/04/24 07/04/24 07/04/24 15:30 16:46 21:02 WBC RBC Hgb Hct MCV MCH MCHC RDW Std Deviation Plt Count Neut % (Auto) Lymph % (Auto) [place] % (Auto) Eos % (Auto) Baso % (Auto) Neut # (Auto) Lymph # (Auto) [place] # (Auto) Eos # (Auto) Baso # (Auto) Immature Gran # (Auto) Absolute Nucleated RBC Immature Gran % Nucleated RBC % Sodium 126 L 128 L 125 L Potassium 4.4 Chloride 93 L Carbon Dioxide 24.2 Anion Gap 9 BUN 41 H Creatinine 1.9 H Estim Creat Clear Calc 24.5 L eGFR 37 L BUN/Creatinine Ratio 22 H Glucose 86 D Calculated Osmolality 262 L Calcium 9.2 Corrected Calcium 9.2 Phosphorus 5.3 H Magnesium Total Bilirubin AST ALT Alkaline Phosphatase Total Protein Albumin 4.4 Globulin Albumin/Globulin Ratio TSH Free T4 07/05/24 07/05/24 05:24 05:29 WBC 5.4 RBC 4.15 L Hgb 12.3 L Hct 34.4 L MCV 83 MCH 29.6 MCHC 35.8 RDW Std Deviation 38.3 Plt Count 320 D Neut % (Auto) 68 Lymph % (Auto) 19 [place] % (Auto) 10 Eos % (Auto) 2 Baso % (Auto) 0 Neut # (Auto) 3.7 Lymph # (Auto) 1.1 [place] # (Auto) 0.5 Eos # (Auto) 0.1 Baso # (Auto) 0.0 Immature Gran # (Auto) 0.02 H Absolute Nucleated RBC 0.00 Immature Gran % 0 Nucleated RBC % 0 Sodium 129 L Potassium 4.0 Chloride 96 L Carbon Dioxide 18.9 L Anion Gap 14 BUN 45 H Creatinine 1.8 H Estim Creat Clear Calc 25.9 L eGFR 40 L BUN/Creatinine Ratio 25 H Glucose 235 H D Calculated Osmolality 278 Calcium 9.1 Corrected Calcium 9.1 Phosphorus Cancelled Magnesium 2.4 Total Bilirubin 0.6 AST 25 ALT 37 Alkaline Phosphatase 83 Total Protein 7.1 Albumin 4.7 Globulin 2.4 Albumin/Globulin Ratio 2.0 TSH 0.57 Free T4 1.22 Quality Measures Quality Measures VTE prophylaxis Advance care planning discussed with:: patient and child Assessment & Plan Assessment Current Active Medications: Generic Name Dose Route Start Last Admin Trade Name Freq PRN Reason Stop Dose Admin Acetaminophen 650 mg 07/01/24 20:38 Acetaminophen 325 Mg Tablet PO 07/31/24 20:37 Q6H PRN PAIN OR FEVER > 101 Dextrose 25 ml 07/01/24 20:50 Dextrose 50%-Water Inj 50 Ml Syringe IV 07/31/24 20:49 Q15MIN PRN BG 50-70 responsive npo pt Dextrose 50 ml 07/01/24 20:50 Dextrose 50%-Water Inj 50 Ml Syringe IV 07/31/24 20:49 Q15MIN PRN BG <50 OR BG <70 & pt unresponsive Diclofenac Sodium 1 gm 07/02/24 12:00 07/05/24 11:11 Diclofenac 1% Top Gel 100 Gm Tube TOP 08/01/24 11:59 Not Given QID DEREJE Diltiazem HCl 30 mg 07/05/24 06:00 07/05/24 13:28 Diltiazem 30 Mg Tablet PO 08/04/24 05:59 30 mg TID DEREJE Administration Glucagon 1 mg 07/01/24 20:50 Glucagon Inj 1 Mg Vial IM Q15MIN PRN BG <70, and no IV access Heparin Sodium (Porcine) 5,000 unit 07/02/24 21:00 07/05/24 08:33 Heparin Sod Inj 5000 Unit/Ml Vial SC 07/16/24 20:59 5,000 unit Q12HR DEREJE Administration Insulin Human Lispro 0 unit 07/02/24 07:30 07/05/24 11:28 Insulin Lispro (Admelog) 1 Unit/0.01 Ml Unit SC 08/01/24 07:29 2 unit AC DEREJE Administration Protocol Lisinopril 40 mg 07/02/24 09:00 07/05/24 08:34 Lisinopril 20 Mg Tablet PO 08/01/24 08:59 40 mg QDAY DEREJE Administration Ondansetron HCl 4 mg 07/01/24 20:38 Ondansetron Inj 2 Mg/Ml Inj 2 Ml IV 07/31/24 20:37 Q6H PRN NAUSEA OR VOMITING Protocol Sennosides 2 tab 07/01/24 20:38 Senna Tablet PO 07/31/24 20:37 BID PRN CONSTIPATION Protocol Sodium Chloride 1 gm 07/05/24 14:00 07/05/24 13:28 Sodium Chloride 1 Gm Tablet PO 08/04/24 13:59 1 gm TID DEREJE Administration Plan 73-year-old male, past medical history of hypertension, [id number] type 2 diabetes, hyperlipidemia, who was referred to the ER by his PCP after routine labs showed hyponatremia; admitted for IV fluid resuscitation and close monitoring. #Paroxysmal atrial flutter As noted above, patient developed elevated heart rate of 120, EKG showed a flutter with RVR CHADVASC of 3 (age, htn and dm) Repeat EKG shows ectopic atrial rhythm with first-degree AV block with occasional supraventricular premature contractions and possible left posterior fascicular block and nonspecific T wave abnormalities On telemetry box, patient is currently normal sinus rhythm Plan: Cardiology, Dr. Ferrell, consulted appreciate recommendations Echo ordered Continue diltiazem 30 mg 3 times daily Monitor for any acute changes #Hypoosmolar Hyponatremia Per history, patient follows up sporadically with a provider for his kidney but is unsure at this time about his diagnosis Hyponatremia likely secondary to complete abstinence from sodium for the past 2 months Patient able to urinate and denies having any kidney disease in the past Per patient, on outpatient labs sodium was 117; however, was told to present to the ED by his PCP Chest x-ray negative for pulmonary mass CT head negative for any acute process Patient's hyponatremia slightly overcorrected within the past 24 hours with an increase of 10 mmol Stopped IV fluid resuscitation with NS and switch to IV D5W at 75 cc/h; IV fluids off as sodium is at acceptable range Urine electrolytes as follows; creatinine 31, sodium 60, potassium 17 and chloride 64; all within normal limits Plan: Follow-up with renal panel Nephrology consulted, appreciate recommendations Salt tablets 1 g 3 times daily #ANIYA on CKD stage II, improving Unknown baseline kidney function, but patient does have history of CKD, lost to follow-up with operating manager as stated above Plan: Encourage oral hydration Avoid nephrotoxic agents Renally dose medications when applicable Nephrology consulted as above Follow-up with morning labs #Elevated troponin, NSTEMI type II, resolved Likely supply/demand ischemia/NSTEMI type II versus NSTEMI type I less likely Patient does have some risk factors for CVA with hypertension, CKD and diabetes - could benefit from cardiac workup once discharged safely patient is asymptomatic does not complain of any chest pain or pressure. No complaint of shortness of breath. Initial troponin elevated on ER labs; peaked and downtrended at 0.052 EKG negative for any acute ischemia Plan: Monitor for any acute changes in symptoms Stopped trending troponin #Hypertension On home lisinopril 30 mg p.o. daily Plan: Continue home medication #[id number] type 2 diabetes A1c of 8.1 Patient on home metformin 1000 mg p.o. twice daily Plan: [facility] Diabetic education Hospital Management: Disposition: TELE DVT prophylaxis: Heparin subcut GI prophylaxis: none Diet: Renal , carb consistent Lines: PIV CODE STATUS: Full Patient seen and examined with attending Dr. Bloom and senior resident Dr. Braydon Asencio, PGY-1 LPatient examined and case discussed with the team including attending physician . Note reviewed, I agree with the care plan as documented. Na improving. Continue on slat tabs. Received IVF NS x1. Patient tolerating diet, adequate urine output and mentation is at baseline. New onset AFib, Dr Shankar is consulted. Will DC on rate control Diltiazem 30mg TID and Eliquis 10mg BID x7days -> 5mg BID. Please refer to the note above for further details. - Nathan Bryson MD, PGY 2 Disclaimer: The document may contain phonetic/typographic errors due to voice recognition software. These errors are purely due to imperfections in the software program and should not be misconstrued in any way to compromise the substance of the patient's medical care during this visit. L Attending Provider Attestation/Addendum 73-year-old male with multiple comorbidities including hypertension, type 2 diabetes mellitus, hyperlipidemia with subsequent CVA who presented with weakness found to have hyperosmolar hyponatremia, elevated troponins. As of now, plan to continue gentle IV fluid resuscitation with improvement in sodium and continue to monitor kidney function as patient was noted to have acute kidney injury. As per mentation, patient appears to be back to baseline.overnight, patient was noted to have SVT with underlying rhythm being A-fib/a flutter for which started on diltiazem and pending cardiology. Continue to monitor closely in telemetry. I reviewed above note and agree with findings and plans. I have also personally examined the patient with medicine team and went over assessment and plan with medical team including internet network specialist and resident physician.
--- NOTE | 2024-07-05 14:32 | PD.IMCONS ---
HPI Data of Consult Requesting Physician: Belkys Bloom MD Primary Care Provider: Physician No Primary/Family Consult Narrative History of present illness: This is a 81- y/o M with PMHx significant for diabetes mellitus, hypertension, ischemic CVA, pt admitted with hyponatremia cardiology consulted for afib EKG afib HR 70-80 no chest mendez or sob cc:: cc: Belkys Bloom MD Meds Home Medications and Allergies Home Medications ?Medication ?Instructions ?Recorded ?Confirmed ?Type atorvastatin 20 mg tablet 20 mg PO QDAY 01/29/22 07/02/24 History lisinopril 30 mg tablet 30 mg PO QDAY 01/29/22 07/02/24 History metformin 1,000 mg tablet 1,000 mg PO BID 07/02/24 07/02/24 History Allergies Allergy/AdvReac Type Severity Reaction Status Date / Time No Known Allergies Allergy Unverified 07/03/24 09:22 Exam Vital Signs Temp Pulse Resp BP Pulse Ox O2 Del Method 97.7 F 88 17 158/71 H 96 Room Air 07/05/24 12:00 07/05/24 13:28 07/05/24 12:00 07/05/24 13:28 07/05/24 12:00 07/05/24 12:00 Routine HEENT Exam Head: Present normocephalic and atraumatic Eye: Present EOMI and PERRL ENT: Present mucous membranes moist Routine Neck Exam Neck: Present supple and trachea midline Routine Respiratory Exam Respiratory: Present chest non-tender, lungs clear, normal breath sounds and no resp distress Routine Cardiovascular Exam Cardiovascular: Present RRR Routine Abdominal Exam Abdominal: Present soft and normoactive bowel sounds Routine Extremities Exam Extremities: Present full ROM Routine Skin Exam Skin: Present intact, dry and warm Routine Neurological Exam Neurological: Present alert, oriented X3 and CN II-XII intact Routine Psychiatric Exam Psychiatric: Present normal affect and normal thought process Results Labs 07/05/24 05:24 07/05/24 05:24 Labs: Short CBC 07/05/24 Range/Units 05:24 WBC 5.4 (3.8-10.6) Thou/mm3 Hgb 12.3 L (13.5-16.0) g/dL Hct 34.4 L (41.0-53.0) % Plt Count 320 D (140-440) Thou/mm3 BMP 07/04/24 07/04/24 07/04/24 15:30 16:46 21:02 Sodium 126 L 128 L 125 L Potassium 4.4 Chloride 93 L Carbon Dioxide 24.2 BUN 41 H Creatinine 1.9 H Glucose 86 D Calcium 9.2 07/05/24 05:24 Sodium 129 L Potassium 4.0 Chloride 96 L Carbon Dioxide 18.9 L BUN 45 H Creatinine 1.8 H Glucose 235 H D Calcium 9.1 Liver Function 07/04/24 07/05/24 Range/Units 15:30 05:24 Total Bilirubin 0.6 (0.3-1.2) mg/dL AST 25 (0-34) U/L ALT 37 (10-49) U/L Alkaline Phosphatase 83 (46-116) U/L Albumin 4.4 4.7 (3.4-4.8) gm/dL Assessment and Plan Assessment and plan (1) Weakness generalized: Status: Acute (2) Dizziness: Status: Acute (3) Acute hyponatremia: Status: Acute (4) Afib: Status: Acute Additional Assessment & Plan Additional Plan: troponin to be done echo may need nursing home anticoagulation
[2024-07-06] VITALS (10 sets, daily range): BP systolic 107–160; BP diastolic 51–77; PULSE 60–92; RESP 14–23; TEMP 36.7–36.9; O2SAT 98–100; BMI 18.3
[2024-07-06] MEDS: DILTIAZEM 30 MG TABLET PO ×2 (05:36→21:26)
[2024-07-06] MEDS: SODIUM CHLORIDE 1 GM TABLET PO ×3 (05:37→21:26)
[2024-07-06 06:28] LABS: Basophils % (Auto) 0 % (0-2.5); Eosinophils # (Auto) 0.1 Thou/mm3 (0.0-0.5); Eosinophils % (Auto) 2 % (0-10); Hematocrit 31.5 % (41.0-53.0); Hemoglobin 11.4 g/dL (13.5-16.0); Immature Granulocytes % (Auto) 0 % (0-0); Immature Granulocytes Auto 0.01 Thou/mm3 (0.00-0.00); Lymphocytes # (Auto) 1.1 Thou/mm3 (1.0-4.8); Lymphocytes % (Auto) 16 % (10-50); Mean Corpuscular HGB Conc 36.2 g/dl (31.0-37.0); Mean Corpuscular Hemoglobin 30.4 pg (25.0-35.0); Mean Corpuscular Volume 84 fL (80-100); Monocytes # (Auto) 0.7 Thou/mm3 (0.0-0.8); Monocytes % (Auto) 10 % (0-12); Neutrophils # (Auto) 4.8 Thou/mm3 (1.8-7.7); Neutrophils % (Auto) 72 % (37-80); Nucleated Red Blood Cell % 0 /100 WBC (0); Platelet Count 291 Thou/mm3 (140-440); RDW Standard Deviation 39.6 fL (35.1-43.9); Red Blood Count 3.75 Miln/mm3 (4.50-5.90); White Blood Count 6.6 Thou/mm3 (3.8-10.6)
[2024-07-06 06:51] LABS: Albumin, Serum 4.3 gm/dL (3.4-4.8); Anion Gap 10 (7-16); BUN/Creatinine Ratio 27 Ratio (12-20); Blood Urea Nitrogen 46 mg/dL (9-23); Carbon Dioxide 21.6 mMol/L (20.0-31.0); Chloride 98 mMol/L (98-107); Creatinine (Component) 1.7 mg/dL (0.6-1.3); Estimated Creatinine Clearance 27.4 mL/min (>60); Glucose 138 mg/dL (74-106); Osmolality,Calculated 274 (275-295); Phosphorous 4.4 mg/dL (2.4-5.1); Sodium 130 mMol/L (136-145); eGFR 43 See Note
[2024-07-06] MEDS: INSULIN LISPRO (AdmeLOG) 1 UNIT/0.01 ML UNIT SC ×2 (07:40→11:46)
--- NOTE | 2024-07-06 07:55 | ESPR_ITS ---
Documentation for date of: 07/06/24 Subjective Subjective Interval history: HR 90-100 afib conttinue tele Exam Vital Signs Temp Pulse Resp BP Pulse Ox O2 Del Method 98.1 F 63 23 H 127/77 99 Room Air 07/06/24 04:00 07/06/24 07:51 07/06/24 04:00 07/06/24 05:36 07/06/24 04:00 07/06/24 04:00 Routine HEENT Exam Head: Present normocephalic and atraumatic Eye: Present EOMI and PERRL ENT: Present mucous membranes moist Routine Neck Exam Neck: Present supple and trachea midline Routine Respiratory Exam Respiratory: Present chest non-tender, lungs clear, normal breath sounds and no resp distress Routine Cardiovascular Exam Cardiovascular: Present RRR Routine Abdominal Exam Abdominal: Present soft and normoactive bowel sounds Routine Extremities Exam Extremities: Present full ROM Routine Skin Exam Skin: Present intact, dry and warm Routine Neurological Exam Neurological: Present alert, oriented X3 and CN II-XII intact Routine Psychiatric Exam Psychiatric: Present normal affect and normal thought process Objective Labs 07/06/24 05:21 07/06/24 05:21 Labs: Laboratory Results - last 24 hr 07/05/24 07/06/24 05:29 05:21 WBC 6.6 RBC 3.75 L Hgb 11.4 L Hct 31.5 L MCV 84 MCH 30.4 MCHC 36.2 RDW Std Deviation 39.6 Plt Count 291 Neut % (Auto) 72 Lymph % (Auto) 16 [place] % (Auto) 10 Eos % (Auto) 2 Baso % (Auto) 0 Neut # (Auto) 4.8 Lymph # (Auto) 1.1 [place] # (Auto) 0.7 Eos # (Auto) 0.1 Baso # (Auto) 0.0 Immature Gran # (Auto) 0.01 H Absolute Nucleated RBC 0.00 Immature Gran % 0 Nucleated RBC % 0 Sodium 130 L Potassium 4.0 Chloride 98 Carbon Dioxide 21.6 Anion Gap 10 BUN 46 H Creatinine 1.7 H Estim Creat Clear Calc 27.4 L eGFR 43 L BUN/Creatinine Ratio 27 H Glucose 138 H D Calculated Osmolality 274 L Calcium 9.0 Corrected Calcium 9.0 Phosphorus 4.4 Magnesium 2.4 Albumin 4.3 TSH 0.57 Free T4 1.22 Assessment & Plan A&P Narrative continue diltiazem echo unremarkable Time Spent With Patient Time: Total time spent is greater than 50% in coordination of care (as documented) at patient's floor/unit and/or counseling patient:
[2024-07-06] MEDS: HEPARIN SOD INJ 5000 UNIT/ML VIAL SC (08:01)
[2024-07-06 09:06] LABS: Troponin I 0.111 ng/mL (0.0-0.045)
[2024-07-06 09:16] LABS: Ferritin 213 ng/mL (10.5-307.3); Iron 110 mcg/dL (65-175); Percent Iron Saturation 42 % (20-55); Total Iron Binding Capacity 260 mcg/dL (250-425); Unsaturated Iron Binding 150 (225-295)
--- NOTE | 2024-07-06 10:52 | ESPR_ITS ---
Documentation for date of: 07/06/24 Subjective Subjective Interval history: 81- y/o M with PMHx significant for diabetes mellitus, hypertension, ischemic CVA, who was referred to the ER by his primary care physician after routine labs showed low sodium. Per patient he is currently asymptomatic, except for some tingling sensation in his left lower extremity and left shoulder. Mental status is at the baseline. The patient he was seen at [facility] by his PCP, routine labs showed sodium 117, patient was directed to go to the emergency room for admission. Patient reported that he has been trying to lose weight and is on a diet, diet mostly consists of toast, also admitted to drinking excessive amounts of water. Also reported infrequent loose bowel movements, twice last week. In the ER, patient was given 250 mL NS, initial labs showed sodium improved to 120, BUN 27, creatinine 1.6, unknown baseline kidney function, patient did endorse having a past medical history of kidney disorders but has been noncompliant with following up with kindergarten prep teacher. Nephrology consulted for management of hyponatremia. Patient initially showed overcorrection of sodium, was placed on D5W with every 2 hours sodium checks. Sodium level decreased appropriately, D5W was stopped and patient placed on fluid restriction. Patient denies weakness, dizziness, paresthesias, nausea, vomiting. Hemoglobin 10.4. Sodium 127, potassium 3.6, BUN 23, creatinine 1.2, EGFR 60. Will continue with fluid restriction and frequent sodium checks. 07/03/2024: Patient seen and examined at bedside. Patient was comfortably, denies fever, chills, nausea, vomiting, abdominal pain, weakness, dizziness, paresthesias. Despite fluid restriction, patient sodium not improving. Sodium 127, down to 123. Potassium 2.5, BUN 25, creatinine 1.3, eGFR 59. Will add salt tabs and continue to monitor. 07/04/2024: Patient seen and examined at bedside. Patient comfortable, good range of movement, alert and oriented. Patient fever, chills, nausea, vomiting, weakness, dizziness, paresthesias. Patient continues to have difficulty maintaining sodium levels. Sodium 122, potassium 4.1, bicarb 23.5, BUN 34, creatinine 1.7, EGFR 43. 07/05/2024: Patient seen and examined at bedside. Patient comfortable, good range of movement, alert and oriented. Patient sodium improved to 129 this morning, patient is stable. Overnight, patient had heart rate of 120 on telemetry, EKG was done which showed a flutter with rapid ventricular response, cardiology consulted. 07/06/2024: Patient seen and examined at bedside. Resting comfortably in bed, sodium 130 this morning. Patient is stable from nephrology perspective for discharge, patient can be discharged on 1 g salt tablet twice a day, patient to follow-up outpatient with kindergarten prep teacher Dr. Arango. Patient is stable from renal perspective, BUN 46, creatinine 1.7, GFR 43 today. Exam Vital Signs Temp Pulse Resp BP Pulse Ox O2 Del Method 98.5 F 75 18 107/51 L 98 Room Air 07/06/24 08:00 07/06/24 08:00 07/06/24 08:00 07/06/24 08:00 07/06/24 08:00 07/06/24 08:00 Narrative Exam General: AOx3, cooperative, noted temporal wasting Skin: Intact, no cyanosis or edema noted. HEENT: Atraumatic/normocephalic, ADIS, neck supple Heart: RRR, S1 and S2 without clicks or murmurs Lungs: Clear on auscultation bilaterally, no difficulty breathing Abdomen: Soft, nontender. Bowel sounds present . Vascular: Peripheral pulses palpable Neuro: No focal neurological deficits noted. Objective Labs 07/07/24 04:23 07/07/24 04:23 Labs: Laboratory Results - last 24 hr 07/05/24 07/06/24 05:29 05:21 WBC 6.6 RBC 3.75 L Hgb 11.4 L Hct 31.5 L MCV 84 MCH 30.4 MCHC 36.2 RDW Std Deviation 39.6 Plt Count 291 Neut % (Auto) 72 Lymph % (Auto) 16 [place] % (Auto) 10 Eos % (Auto) 2 Baso % (Auto) 0 Neut # (Auto) 4.8 Lymph # (Auto) 1.1 [place] # (Auto) 0.7 Eos # (Auto) 0.1 Baso # (Auto) 0.0 Immature Gran # (Auto) 0.01 H Absolute Nucleated RBC 0.00 Immature Gran % 0 Nucleated RBC % 0 Sodium 130 L Potassium 4.0 Chloride 98 Carbon Dioxide 21.6 Anion Gap 10 BUN 46 H Creatinine 1.7 H Estim Creat Clear Calc 27.4 L eGFR 43 L BUN/Creatinine Ratio 27 H Glucose 138 H D Calculated Osmolality 274 L Calcium 9.0 Corrected Calcium 9.0 Phosphorus 4.4 Iron 110 TIBC 260 Iron Saturation 42 Unsat Iron Binding 150 L Ferritin 213 Troponin I 0.111 H* Albumin 4.3 TSH 0.57 Free T4 1.22 Quality Measures Quality Measures VTE prophylaxis Advance care planning discussed with:: patient Assessment & Plan Assessment Current Active Medications: Generic Name Dose Route Start Last Admin Trade Name Freq PRN Reason Stop Dose Admin Acetaminophen 650 mg 07/01/24 20:38 Acetaminophen 325 Mg Tablet PO 07/31/24 20:37 Q6H PRN PAIN OR FEVER > 101 Apixaban 2.5 mg 07/06/24 21:00 Apixaban 2.5 Mg Tablet PO 08/05/24 20:59 BID DEREJE Dextrose 25 ml 07/01/24 20:50 Dextrose 50%-Water Inj 50 Ml Syringe IV 07/31/24 20:49 Q15MIN PRN BG 50-70 responsive npo pt Dextrose 50 ml 07/01/24 20:50 Dextrose 50%-Water Inj 50 Ml Syringe IV 07/31/24 20:49 Q15MIN PRN BG <50 OR BG <70 & pt unresponsive Diclofenac Sodium 1 gm 07/02/24 12:00 07/06/24 05:39 Diclofenac 1% Top Gel 100 Gm Tube TOP 08/01/24 11:59 Not Given QID DEREJE Diltiazem HCl 30 mg 07/05/24 06:00 07/06/24 05:36 Diltiazem 30 Mg Tablet PO 08/04/24 05:59 30 mg TID DEREJE Administration Glucagon 1 mg 07/01/24 20:50 Glucagon Inj 1 Mg Vial IM Q15MIN PRN BG <70, and no IV access Insulin Human Lispro 0 unit 07/02/24 07:30 07/06/24 07:40 Insulin Lispro (Admelog) 1 Unit/0.01 Ml Unit SC 08/01/24 07:29 1 unit AC DEREJE Administration Protocol Lisinopril 40 mg 07/02/24 09:00 07/05/24 08:34 Lisinopril 20 Mg Tablet PO 08/01/24 08:59 40 mg QDAY DEREJE Administration Ondansetron HCl 4 mg 07/01/24 20:38 Ondansetron Inj 2 Mg/Ml Inj 2 Ml IV 07/31/24 20:37 Q6H PRN NAUSEA OR VOMITING Protocol Sennosides 2 tab 07/01/24 20:38 Senna Tablet PO 07/31/24 20:37 BID PRN CONSTIPATION Protocol Sodium Chloride 1 gm 07/05/24 14:00 07/06/24 05:37 Sodium Chloride 1 Gm Tablet PO 08/04/24 13:59 1 gm TID DEREJE Administration Plan 73-year-old male, past medical history of hypertension, huv-nhwhzyq-yobleyvxo type 2 diabetes, hyperlipidemia, who was referred to the ER by his PCP after routine labs showed hyponatremia; admitted for IV fluid resuscitation and close monitoring. Nephrology consulted for acute hyponatremia. #Hypoosmolar Hyponatremia, asymptomatic Per history, patient follows up sporadically with a provider for his kidney but is unsure at this time about his diagnosis .Hyponatremia likely secondary to complete abstinence from sodium for the past 2 months with lots of water intake. Patient able to urinate and denies having any kidney disease in the past. Per patient, on outpatient labs sodium was 117. Chest x-ray negative for pulmonary mass. CT head negative for any acute process. Patient's hyponatremia slightly overcorrected within the past 24 hours with an increase of 10 mmol Stopped IV fluid resuscitation with NS and switch to IV D5W at 75 cc/h. Sodium remains difficult to correct on fluid restriction without IV fluids. Will add salt tabs. Urine electrolytes taken: Random sodium 60.8, random potassium 17, random chloride 64.9, random creatinine 31. Sodium continues to be difficult to correct, increased salt tabs. -Sodium checks daily -Fluid strictly 1500 cc daily -Salt tabs 1 g p.o. 3 times daily, patient can be discharged on salt tablets 1 g p.o. twice a day #ANIYA on CKD stage II, improving Unknown baseline kidney function, but patient does have history of CKD, lost to follow-up with kindergarten prep teacher as stated above. Makes good urine. -Avoid nephrotoxic agents -Renally dose medications when applicable -Monitor daily renal function #Elevated troponin, NSTEMI type II #Hypertension #Lsa-npojrhj-iqxivaqwy type 2 diabetes #Paroxysmal atrial flutter Management as per primary team DVT prophylaxis: Heparin subcut GI prophylaxis: none Diet: Renal , carb consistent, fluid restrict Lines: PIV CODE STATUS: Full Thank you for allow us to participate in the care of this patient. Plan of care discussed with attending Dr. Pedro. Mary Ortiz PGY?1 Attending Provider Attestation/Addendum Pt is seen and examined. Labs and investigations are reviewed. Agree witth assessment and plan by resident. agree with findings. Hasrhad Pedro MD
[2024-07-06 11:12] LABS: Troponin I 0.116 ng/mL (0.0-0.045)
--- NOTE | 2024-07-06 11:25 | PC.SS ---
rounding note: Patient to d/c home today. No d/c needs. Return home with spouse. Independent with ADLl's.
--- NOTE | 2024-07-06 11:37 | PD.RESPRO ---
Documentation for date of: 07/06/24 Subjective Subjective Interval history: 07/06/2024: No acute overnight events to report. Patient seen and examined in hospital bed remains at current baseline and denies having any concerning symptoms such as chest pain, shortness of breath, palpitations or any dizziness. Patient echo read by steel shot header operator shows normal left ventricular size and function with normal ejection fraction but there is noted some moderate sclerosis of the atrial valve without stenosis. Patient has mild elevation in troponin which we will trend. Will start patient on Eliquis (2.5 mg p.o. twice daily) as the patient has a CHADSVASC of 3 and noted to have a flutter on EKG confirmed by cardiology. Will continue to monitor the patient overnight and trend troponin; expecting discharge within the next 24 hours. Exam Vital Signs Temp Pulse Resp BP Pulse Ox O2 Del Method 98.1 F 66 20 126/51 L 100 Room Air 07/06/24 11:36 07/06/24 11:36 07/06/24 11:36 07/06/24 11:36 07/06/24 11:36 07/06/24 11:36 Narrative Exam Physical Exam: GENERAL: Awake, answering questions appropriately, appears stated age, frail appearing/low body weight HEENT: NC/AT. Moist mucosa. PERRLA/EOMI. CARDIO: Heart RRR, no obvious murmurs, no JVD. PULM: No coughing or visible SOB. Lungs CTA B/L. GI: Abdomen soft, NT/ND, +BS. SKIN/MSK/EXT: No wounds/discoloration/rashes/edema/amputations. +Pedal pulses present B/L. NEURO: Oriented x3, Moves extremities x4, no focal neurologic deficits noted. Objective Labs 07/06/24 05:21 07/06/24 05:21 Labs: Laboratory Results - last 24 hr 07/06/24 07/06/24 05:21 10:18 WBC 6.6 RBC 3.75 L Hgb 11.4 L Hct 31.5 L MCV 84 MCH 30.4 MCHC 36.2 RDW Std Deviation 39.6 Plt Count 291 Neut % (Auto) 72 Lymph % (Auto) 16 [place] % (Auto) 10 Eos % (Auto) 2 Baso % (Auto) 0 Neut # (Auto) 4.8 Lymph # (Auto) 1.1 [place] # (Auto) 0.7 Eos # (Auto) 0.1 Baso # (Auto) 0.0 Immature Gran # (Auto) 0.01 H Absolute Nucleated RBC 0.00 Immature Gran % 0 Nucleated RBC % 0 Sodium 130 L Potassium 4.0 Chloride 98 Carbon Dioxide 21.6 Anion Gap 10 BUN 46 H Creatinine 1.7 H Estim Creat Clear Calc 27.4 L eGFR 43 L BUN/Creatinine Ratio 27 H Glucose 138 H D Calculated Osmolality 274 L Calcium 9.0 Corrected Calcium 9.0 Phosphorus 4.4 Iron 110 TIBC 260 Iron Saturation 42 Unsat Iron Binding 150 L Ferritin 213 Troponin I 0.111 H* 0.116 H* Albumin 4.3 Quality Measures Quality Measures VTE prophylaxis Advance care planning discussed with:: patient Assessment & Plan Assessment Current Active Medications: Generic Name Dose Route Start Last Admin Trade Name Freq PRN Reason Stop Dose Admin Acetaminophen 650 mg 07/01/24 20:38 Acetaminophen 325 Mg Tablet PO 07/31/24 20:37 Q6H PRN PAIN OR FEVER > 101 Apixaban 2.5 mg 07/06/24 21:00 Apixaban 2.5 Mg Tablet PO 08/05/24 20:59 BID DEREJE Dextrose 25 ml 07/01/24 20:50 Dextrose 50%-Water Inj 50 Ml Syringe IV 07/31/24 20:49 Q15MIN PRN BG 50-70 responsive npo pt Dextrose 50 ml 07/01/24 20:50 Dextrose 50%-Water Inj 50 Ml Syringe IV 07/31/24 20:49 Q15MIN PRN BG <50 OR BG <70 & pt unresponsive Diclofenac Sodium 1 gm 07/02/24 12:00 07/06/24 05:39 Diclofenac 1% Top Gel 100 Gm Tube TOP 08/01/24 11:59 Not Given QID DEREJE Diltiazem HCl 30 mg 07/05/24 06:00 07/06/24 05:36 Diltiazem 30 Mg Tablet PO 08/04/24 05:59 30 mg TID DEREJE Administration Glucagon 1 mg 07/01/24 20:50 Glucagon Inj 1 Mg Vial IM Q15MIN PRN BG <70, and no IV access Insulin Human Lispro 0 unit 07/02/24 07:30 07/06/24 07:40 Insulin Lispro (Admelog) 1 Unit/0.01 Ml Unit SC 08/01/24 07:29 1 unit AC DEREJE Administration Protocol Lisinopril 40 mg 07/02/24 09:00 07/05/24 08:34 Lisinopril 20 Mg Tablet PO 08/01/24 08:59 40 mg QDAY DEREJE Administration Ondansetron HCl 4 mg 07/01/24 20:38 Ondansetron Inj 2 Mg/Ml Inj 2 Ml IV 07/31/24 20:37 Q6H PRN NAUSEA OR VOMITING Protocol Sennosides 2 tab 07/01/24 20:38 Senna Tablet PO 07/31/24 20:37 BID PRN CONSTIPATION Protocol Sodium Chloride 1 gm 07/05/24 14:00 07/06/24 05:37 Sodium Chloride 1 Gm Tablet PO 08/04/24 13:59 1 gm TID DEREJE Administration Plan 73-year-old male, past medical history of hypertension, [id number] type 2 diabetes, hyperlipidemia, who was referred to the ER by his PCP after routine labs showed hyponatremia; admitted for IV fluid resuscitation and close monitoring. #Paroxysmal atrial flutter #Elevated troponin, NSTEMI type II #Grade 1 diastolic dysfunction As noted above, patient developed elevated heart rate of 120, EKG showed a flutter with RVR CHADVASC of 3 (age, htn and dm) Repeat EKG shows ectopic atrial rhythm with first-degree AV block with occasional supraventricular premature contractions and possible left posterior fascicular block and nonspecific T wave abnormalities On telemetry box, patient is currently normal sinus rhythm Likely supply/demand ischemia/NSTEMI type II versus NSTEMI type I less likely Patient does have some risk factors for CVA with hypertension, CKD and diabetes - could benefit from cardiac workup once discharged safely patient is asymptomatic does not complain of any chest pain or pressure. No complaint of shortness of breath. Initial troponin elevated on ER labs; peaked and downtrended at 0.052 EKG negative for any acute ischemia Troponin went from 0.111 to 0.116 Echo shows: Normal LV size and function with an estimated LVEF of 55 to 60%. Diastolic dysfunction stage I. Normal RV size and function with an estimated RVSP of 20 mmHg. Moderate aortic valve calcification with moderate aortic valve sclerosis without stenosis. Mild to moderate MAC. Mild MR and mild TR. Plan: Cardiology, Dr. Ferrell, consulted appreciate recommendations Echo ordered Continue diltiazem 30 mg 3 times daily Monitor for any acute changes Trending troponin #Hypoosmolar Hyponatremia, improving Per history, patient follows up sporadically with a provider for his kidney but is unsure at this time about his diagnosis Hyponatremia likely secondary to complete abstinence from sodium for the past 2 months Patient able to urinate and denies having any kidney disease in the past Per patient, on outpatient labs sodium was 117; however, was told to present to the ED by his PCP Chest x-ray negative for pulmonary mass CT head negative for any acute process Patient's hyponatremia slightly overcorrected within the past 24 hours with an increase of 10 mmol Stopped IV fluid resuscitation with NS and switch to IV D5W at 75 cc/h; IV fluids off as sodium is at acceptable range Urine electrolytes as follows; creatinine 31, sodium 60, potassium 17 and chloride 64; all within normal limits Plan: Follow-up with renal panel Nephrology consulted, appreciate recommendations Salt tablets 1 g 3 times daily #ANIYA on CKD stage II, improving Unknown baseline kidney function, but patient does have history of CKD, lost to follow-up with sap fico architect as stated above Plan: Encourage oral hydration Avoid nephrotoxic agents Renally dose medications when applicable Nephrology consulted as above Follow-up with morning labs #Hypertension On home lisinopril 30 mg p.o. daily Plan: Holding home medication #Bon-ehhytmz-sdrdfvhjj type 2 diabetes A1c of 8.1 Patient on home metformin 1000 mg p.o. twice daily Plan: [facility] Diabetic education Hospital Management: Disposition: Trending troponin, expected discharge within the next 24 hours DVT prophylaxis: Heparin subcut GI prophylaxis: none Diet: Renal , carb consistent Lines: PIV CODE STATUS: Full Patient seen and examined with attending Dr. Bloom and senior resident Dr. Braydon Asencio, PGY-1 Attending Provider Attestation/Addendum 73-year-old male with multiple comorbidities including hypertension, type 2 diabetes mellitus, hyperlipidemia with subsequent CVA who presented with weakness found to have hyperosmolar hyponatremia, elevated troponins. As of now, plan to continue gentle IV fluid resuscitation with improvement in sodium and continue to monitor kidney function as patient was noted to have acute kidney injury. As per mentation, patient appears to be back to baseline.furthermore, patient was evaluated by cardiology and stated that underlying rhythm likely be in A-fib and agree with diltiazem and will start patient on Eliquis 2.5 mg twice daily. Updated patient and his at bed side regarding risk and benefits of being on Eliquis including stroke prevention and risk including bleeding especially if patient was to have tripped and fall he could end up with brain bleed however stated that they would like to proceed with caution. Continue to monitor closely and anticipate discharge in the next 24-48 hours pending troponin level cardiology input I reviewed above note and agree with findings and plans. I have also personally examined the patient with medicine team and went over assessment and plan with medical team including internal communications manager and resident physician.
[2024-07-06 17:05] LABS: Troponin I 0.112 ng/mL (0.0-0.045)
[2024-07-06] MEDS: APIXABAN 2.5 MG TABLET PO (21:32)
[2024-07-06 23:16] LABS: Troponin I 0.104 ng/mL (0.0-0.045)
[2024-07-07] VITALS: BP 117/55; PULSE 60; PULSE 61; RESP 17; TEMP 36.3; O2SAT 98
[2024-07-07 04:00] VITALS: BP 117/57; PULSE 62; PULSE 64; RESP 17; TEMP 36.7; O2SAT 99
[2024-07-07 05:20] VITALS: BP 117/57; PULSE 67
[2024-07-07] MEDS: DILTIAZEM 30 MG TABLET PO (05:20)
[2024-07-07] MEDS: SODIUM CHLORIDE 1 GM TABLET PO (05:23)
[2024-07-07 05:46] LABS: Basophils % (Auto) 0 % (0-2.5); Eosinophils # (Auto) 0.2 Thou/mm3 (0.0-0.5); Eosinophils % (Auto) 3 % (0-10); Hematocrit 29.8 % (41.0-53.0); Hemoglobin 10.5 g/dL (13.5-16.0); Immature Granulocytes % (Auto) 0 % (0-0); Immature Granulocytes Auto 0.02 Thou/mm3 (0.00-0.00); Lymphocytes % (Auto) 20 % (10-50); Mean Corpuscular HGB Conc 35.2 g/dl (31.0-37.0); Mean Corpuscular Hemoglobin 29.6 pg (25.0-35.0); Mean Corpuscular Volume 84 fL (80-100); Monocytes # (Auto) 0.6 Thou/mm3 (0.0-0.8); Monocytes % (Auto) 11 % (0-12); Neutrophils # (Auto) 3.5 Thou/mm3 (1.8-7.7); Neutrophils % (Auto) 66 % (37-80); Nucleated Red Blood Cell % 0 /100 WBC (0); Platelet Count 296 Thou/mm3 (140-440); RDW Standard Deviation 40.2 fL (35.1-43.9); Red Blood Count 3.55 Miln/mm3 (4.50-5.90); White Blood Count 5.2 Thou/mm3 (3.8-10.6)
[2024-07-07 06:00] VITALS: BMI 17.7
[2024-07-07 06:06] LABS: Albumin, Serum 4.1 gm/dL (3.4-4.8); Anion Gap 8 (7-16); BUN/Creatinine Ratio 34 Ratio (12-20); Blood Urea Nitrogen 58 mg/dL (9-23); Carbon Dioxide 22.6 mMol/L (20.0-31.0); Chloride 103 mMol/L (98-107); Creatinine (Component) 1.7 mg/dL (0.6-1.3); Estimated Creatinine Clearance 27.4 mL/min (>60); Glucose 131 mg/dL (74-106); Osmolality,Calculated 286 (275-295); Phosphorous 4.3 mg/dL (2.4-5.1); Potassium 3.8 mMol/L (3.4-5.1); Sodium 134 mMol/L (136-145); eGFR 43 See Note
[2024-07-07 07:29] VITALS: BP 125/52; PULSE 66; RESP 17; TEMP 36.3; O2SAT 98
[2024-07-07 08:00] VITALS: PULSE 62
[2024-07-07] MEDS: APIXABAN 2.5 MG TABLET PO (08:22)
--- NOTE | 2024-07-07 10:48 | ESDS_ITS ---
Planned Discharge Date 07/07/24 DS: Providers Provider Date of admission: 07/01/24 20:38 Primary care physician: Physician No Primary/Family Admitting Provider: Sundeep Davis MD Attending Provider on Admission: Eliza Parnell DO Consults: 07/01/24 20:39 Referral Physical Therapy Routine Comment: Physician Instructions: 07/01/24 20:51 Referral Registered Dietitian Routine Comment: 07/02/24 08:35 Consult to Nephrology Routine Comment: Hyponatremia with worsening kidney function Consulting Provider: Harshad Pedro 07/02/24 11:45 Referral Registered Dietitian Routine Comment: 07/05/24 10:31 Consult to Cardiology Routine Comment: New a flutter with PAC/PVC , CHADVASC 3 Consulting Provider: Alan Ferrell Attending Provider on DC: Eliza Parnell DO Discharging Provider: Eliza Parnell DO Diagnosis Problem List Completed Was Problem List Reviewed/Reconciled?: Yes Hospital Course - Hospitalist Hospital Course Hospital course: Paroxysmal A-fib Elevated troponin 2/2 demand ischemia Grade 1 diastolic dysfunction Hypoosmolar hyponatremia ANIYA on CKD, resolved HTN NIDDM type 2 Patient is a 81-year-old male with past medical history of diabetes mellitus, hypertension, ischemic CVA who presents to the ED due to low sodium. Patient had complained of some tingling sensation in his left lower extremity and left shoulder. Outpatient records showed a sodium of 117. Patient states that he he was trying to lose weight and was on a diet mainly consisting of toast and drinking excessive amounts of water. Upon evaluation in the ED, patient was given 250 mL of NS and sodium had increased to 140s, BUN of 27 and creatinine of 1.6. Patient was subsequently admitted for hyperosmolar hyponatremia and ANIYA on CKD. Patient was given salt tabs 1 g p.o. 3 times daily and fluids restricted to 1500 cc daily. Sodium slowly improved with salt tabs. However, over the course of patient's hospitalization, patient developed atrial flutter with rapid ventricular rate. Patient was subsequently started on Cardizem 30 mg p.o. 3 times daily. Cardiology was consulted and recommended full dose anticoagulation. Patient was subsequent started on Eliquis and bleeding risks and follow-up precautions were discussed with the patient with which she verbalized understanding. Echocardiogram was done showing LVEF of 55 to 60% with moderate aortic valve calcification moderate aortic valve sclerosis. Troponins were mildly elevated, which may be linked to his renal dysfunction. With improvement of his sodium and improved rate control, patient has been cleared by cardiology for discharge home. Patient is stable for discharge and can follow-up with PCP and cardiology within 1 week of discharge. Patient encouraged to follow-up with nephrology due to CKD. He is to continue with salt tabs 1 g daily. Time Spent with Patient Time attestation: Total time spent providing and/or coordinating discharge services: 35min Time spent: Greater than 30 minutes Discharge Results Labs Diagrams: 07/07/24 04:23 07/07/24 04:23 Labs: Short CBC 07/07/24 Range/Units 04:23 WBC 5.2 (3.8-10.6) Thou/mm3 Hgb 10.5 L (13.5-16.0) g/dL Hct 29.8 L (41.0-53.0) % Plt Count 296 (140-440) Thou/mm3 BMP 07/07/24 04:23 Sodium 134 L Potassium 3.8 Chloride 103 Carbon Dioxide 22.6 BUN 58 H Creatinine 1.7 H Glucose 131 H Calcium 9.0 Cardiac Enzymes 07/06/24 07/06/24 07/06/24 Range/Units 10:18 16:15 22:24 Troponin I 0.116 H* 0.112 H* 0.104 H* (0.0-0.045) ng/mL Liver Function 07/07/24 Range/Units 04:23 Albumin 4.1 (3.4-4.8) gm/dL Exam Vital Signs Temp Pulse Resp BP Pulse Ox O2 Del Method 97.3 F 66 17 125/52 L 98 Room Air 07/07/24 07:29 07/07/24 07:29 07/07/24 07:29 07/07/24 07:29 07/07/24 07:29 07/07/24 04:00 Narrative Gen: No acute distress HEENT: NCAT, PERRLOU, Sclera anicteric, conjunctiva noninjected, oral mucosa moist without erythema Neck: Supple, full range of motion, no LAD CV: RRR, no murmurs, rubs or gallops Resp: CTAB/L, no wheezing, rhonchi or rales GI: abdomen soft, bowel sounds noted, no tenderness to palpation, no guarding or rebound tenderness, no organomegaly Skin: clean, dry, no rashes, lesions or ecchymosis Ext: no clubbing, cyanosis, or edema Neuro: A&O x3, CN II- XII intact b/l, no focal neurological deficits Discharge Plan Plan Patient Disposition: HOME (Self Care) Patient condition on transfer: Stable Care Plan Goals: Please take sodium chloride 1 tablet by mouth daily for your low sodium levels Please use diclofena gel for joint pain Follow-up with Dr. Arango (nephrology) within 1 week Follow-up with your PCP within 1-2 weeks for repeat labs F/u with cardiology If your symptoms worsen or if you develop new chest pain, shortness of breath, dizziness or weakness - please come back to the ED immediately Prescriptions/Referrals Prescriptions/Med Rec: New sodium chloride 1,000 mg Tablet,Soluble 1,000 mg PO QDAY 30 Days Qty: 30 0RF diclofenac sodium 1 % Gel 1 g top QID 30 Days Qty: 100 0RF diltiazem HCl 30 mg Tablet 30 mg PO TID 30 Days Qty: 90 0RF Eliquis 2.5 mg Tablet 2.5 mg PO BID 30 Days Qty: 60 0RF Januvia 50 mg tablet 50 mg PO QDAY 30 Days Qty: 30 0RF Continued atorvastatin 20 mg Tablet 20 mg PO QDAY lisinopril 30 mg Tablet 30 mg PO QDAY Discontinued metformin 1,000 mg tablet 1,000 mg PO BID Referrals: No Primary/Family,Physician [Primary Care Provider] - Alan Ferrell MD [Physician] - Doug Arango MD [Physician] - Patient/Caregiver Discharge Instructions Education Materials: Hyponatremia Dc, ED Dehydration (Adult) Print Language: Montenegrin Stand Alone Forms: Devi Award Info., Patient Portal Info Letter Discharge Order Discharge Orders: Discharge (Routine); Ordered 07/07/24 Ordered By: Eliza Parnell Quality Discharge Quality Measures VTE prophylaxis
--- NOTE | 2024-07-07 11:10 | PC.NURSE ---
pt ready to discharge when family (son) shows up. Dc intructions completed.
[2024-07-07 11:56] VITALS: BP 164/70; PULSE 93; RESP 22; TEMP 36.2; O2SAT 99
== END 2024-07-07 11:55 | disposition home or self-care (01) | DRG 641 ==
LOC: SERX 16:22 → SERHOLD 22:09 → S3NX 07-03 06:39 → SERHOLD 07-10 09:59 → S2SX 07-10 10:00 → S3NX 07-10 10:00
PROVIDERS: Nurse Practitioner Family; Student in an Organized Health Care Education/Training Program; Admitting Provider Student in an Organized Health Care Education/Training Program; Emergency Provider Emergency Medicine; Visit Provider Internal Medicine
DX: E87.1 Hypo-osmolality and hyponatremia (principal); N17.9 Acute kidney failure, unspecified; I48.92 Unspecified atrial flutter; I12.9 Hypertensive chronic kidney disease with stage 1 through stage 4 chronic kidney disease, or unspecified chronic kidney disease; E11.22 Type 2 diabetes mellitus with diabetic chronic kidney disease; N18.2 Chronic kidney disease, stage 2 (mild); R79.89 Other specified abnormal findings of blood chemistry; I44.0 Atrioventricular block, first degree; I35.8 Other nonrheumatic aortic valve disorders; E78.5 Hyperlipidemia, unspecified; I48.0 Paroxysmal atrial fibrillation; Z91.199 Patient's noncompliance with other medical treatment and regimen due to unspecified reason; Z79.84 Long term (current) use of oral hypoglycemic drugs; Z86.73 Personal history of transient ischemic attack (TIA), and cerebral infarction without residual deficits; Z90.49 Acquired absence of other specified parts of digestive tract; Z79.899 Other long term (current) drug therapy
CPT/HCPCS: 36415; 70450; 71046; 80053; 80061; 80069; 81001; 82436; 82570; 82728; 83036; 83540; 83550; 83735; 83880; 84100; 84133; 84295; 84300; 84439; 84443; 84484; 85025; 85610; 93005; 93225; 93306; 96360; 97161; 99285; J1644; J1815; J3475; J3490; J7030; J7040; J7050; J7070; A9270